=== PATIENT | female | born 1950 | race Caucasian/White ===

== ENCOUNTER 2022-02-03 09:41 | Inpatient (IN) ==
--- NOTE | 2022-01-21 14:33 | PAT Medication Instructions ---
Medication Instructions Date of Service January 21, 2022 Home Medications albuterol sulfate 2.5 mg/3 mL (0.083 %) solution for nebulization 2.5 mg inhalation Q4H PRN Shortness Of Breath Or Wheezing albuterol sulfate 90 mcg/actuation aerosol inhaler (ProAir HFA) 2 puff inhalation 6XD PRN Shortness Of Breath Or Wheezing amlodipine 2.5 mg tablet 2.5 mg PO QAM hydrochlorothiazide 25 mg tablet 25 mg PO QAM trazodone 50 mg tablet 50 mg PO HS acetaminophen 650 mg tablet,extended release 1,300 mg PO DAILY PRN Pain ascorbic acid (vitamin C) 250 mg tablet (Vitamin C) 250 mg PO QAM calcium carbonate 500 mg-vitamin D3 10 mcg (400 unit) tablet (Calcium 500 + D) 1 tab PO QAM ibuprofen 200 mg capsule 200 - 400 mg PO Q6H PRN Pain lactobacillus combination no.4 3 billion cell capsule (Probiotic) 3,000 mmu cells PO QPM vitamin B complex 1 tab PO QAM zinc 50 mg capsule 50 mg PO QAM ASK your surgeon for instructions ibuprofen 200 mg capsule 200 - 400 mg PO Q6H PRN Pain DO NOT take the morning of surgery hydrochlorothiazide 25 mg tablet 25 mg PO QAM ascorbic acid (vitamin C) 250 mg tablet (Vitamin C) 250 mg PO QAM calcium carbonate 500 mg-vitamin D3 10 mcg (400 unit) tablet (Calcium 500 + D) 1 tab PO QAM vitamin B complex 1 tab PO QAM zinc 50 mg capsule 50 mg PO QAM Take morning of surgery With a small sip of water, OTHERWISE NOTHING TO EAT OR DRINK AFTER MIDNIGHT: albuterol sulfate 2.5 mg/3 mL (0.083 %) solution for nebulization 2.5 mg inhalation Q4H PRN Shortness Of Breath Or Wheezing (if needed) albuterol sulfate 90 mcg/actuation aerosol inhaler (ProAir HFA) 2 puff inhalation 6XD PRN Shortness Of Breath Or Wheezing (if needed) amlodipine 2.5 mg tablet 2.5 mg PO QAM acetaminophen 650 mg tablet,extended release 1,300 mg PO DAILY PRN Pain (if needed) Take evening before surgery albuterol sulfate 2.5 mg/3 mL (0.083 %) solution for nebulization 2.5 mg inhalation Q4H PRN Shortness Of Breath Or Wheezing (if needed) albuterol sulfate 90 mcg/actuation aerosol inhaler (ProAir HFA) 2 puff inhalation 6XD PRN Shortness Of Breath Or Wheezing (if needed) trazodone 50 mg tablet 50 mg PO HS acetaminophen 650 mg tablet,extended release 1,300 mg PO DAILY PRN Pain (if needed) lactobacillus combination no.4 3 billion cell capsule (Probiotic) 3,000 mmu cells PO QPM Other Notes If you have any questions please call us at [phone] or [phone] or [phone] or [phone]
--- NOTE | 2022-01-23 11:56 | Anesthesiology Consultation ---
Date of Service January 23, 2022 Assessment & Plan (1) Encounter for pre-operative examination: - Patient acceptable risk for surgery pending surgeon-ordered PCP preop evaluation (scheduled 01/28; [facility]). - COVID screening: Per assessment on 01/23: No known COVID-19 positive contacts or current COVID-19 related symptoms. Travel screen- returned from travel to [place], [place] 01/17 ([facility]). Surgeon arranging preop COVID testing (scheduled 01/30; [facility]). Awaiting results. Chart Review Chart Review: Patient seen in Pre Admission Testing Teaching & Discussion Pre-Anesthesia Teaching/Discussion Notes: Instructed NPO after midnight before surgery,except medications with 15 cc of water. Medication instructions provided according to the PAT guidelines. History Surgery Operation Date: 02/03/22 09:35 Proposed Procedures p L3-L5 Decompression and Fusion, Spinal Cord Monitoring - Basil Zapien DO Height/Weight Height: 5 ft 4 in Weight: 92.4 kg Allergies Allergy/AdvReac Type Severity Reaction Status Date / Time iodine Allergy Intermediate Diffuse Verified 01/21/22 14:43 blistering latex Allergy Intermediate Blistering Verified 01/21/22 14:43 meperidine Allergy Intermediate "Shakes" Verified 01/21/22 14:43 prednisone Allergy Intermediate "Shakes" Verified 01/21/22 14:43 Ewvoxtu-BZB-BpM Reductase Allergy Intermediate "Shakes" Verified 01/21/22 14:43 Inhibitor [Blwyzry-Lzx-Ndr Reductase Inhibitor] Medications Home Medications Medication Instructions Recorded Confirmed Last Taken albuterol sulfate 2.5 mg/3 mL 2.5 mg inhalation Q4H PRN 08/25/21 01/21/22 Unknown (0.083 %) solution for nebulization Shortness Of Breath Or Wheezing albuterol sulfate 90 mcg/actuation 2 puff inhalation 6XD PRN 08/25/21 01/21/22 Unknown aerosol inhaler (ProAir HFA) Shortness Of Breath Or Wheezing amlodipine 2.5 mg tablet 2.5 mg PO QAM 08/25/21 01/21/22 08/25/21 hydrochlorothiazide 25 mg tablet 25 mg PO QAM 08/25/21 01/21/22 08/25/21 trazodone 50 mg tablet 50 mg PO HS 08/25/21 01/21/22 Unknown acetaminophen 650 mg 1,300 mg PO DAILY PRN Pain 01/21/22 01/21/22 Unknown tablet,extended release ascorbic acid (vitamin C) 250 mg 250 mg PO QAM 01/21/22 01/21/22 Unknown tablet (Vitamin C) calcium carbonate 500 mg-vitamin 1 tab PO QAM 01/21/22 01/21/22 Unknown D3 10 mcg (400 unit) tablet (Calcium 500 + D) ibuprofen 200 mg capsule 200 - 400 mg PO Q6H PRN Pain 01/21/22 01/21/22 Unknown lactobacillus combination no.4 3 3,000 mmu cells PO QPM 01/21/22 01/21/22 Unknown billion cell capsule (Probiotic) vitamin B complex 1 tab PO QAM 01/21/22 01/21/22 Unknown zinc 50 mg capsule 50 mg PO QAM 01/21/22 01/21/22 Unknown Past Medical History Medical History Chronic back pain Back to LLE COPD (chronic obstructive pulmonary disease) History of COVID-19 Dx 02/2021 > symptoms at time: loss of taste/smell, resolved Hypertension Lumbosacral radiculopathy at L4 Migraine Hx Tremor Hands, head. No definite diagnosis. Exercise / Class Metabolic Activity III < 4 Walking/Shop/Light housework (one FS (no CP, + SOB)) Past Family History Family History Brother Family history of diabetes mellitus Family hx of colon cancer Brother Family history of diabetes mellitus Brother Family history of diabetes mellitus Daughter Family history of diabetes mellitus Aunt Family history of diabetes mellitus Aunt Family history of diabetes mellitus Aunt Family history of diabetes mellitus Past Surgical History Surgical History Breast cyst Removal Dislocation, hip closed Relocation under anesthesia (07/2021) H/O breast biopsy Benign History of bladder surgery History of cholecystectomy History of colonoscopy History of esophagogastroduodenoscopy (EGD) Nausea and vomiting after administration of anesthetic agent S/P hip replacement Right Past Anesthesia History No Hx of Anesthesia Complications (except single episode PONV) and No Family Hx of Anesthesia Complications History of PONV No Hx of Motion Sickness and History of PONV (Single episode with hip relocation) Social History Smoking Status: Current every day smoker Smoking cigarettes per day: 35 cigs/day Do You Dip or Chew Tobacco: No Hx Alcohol Use: No Hx Substance Use: No substance use type: does not use Review of Systems Patient denies chest pain, shortness of breath, fever, chills, cough, wheezing, palpitations. Physical Exam Vital Signs VITALS BP 126/68 P 89 TEMP 98.1 SP02 95%RA RESP 16 PHYSICAL Full cervical extension range of motion. Full TMJ range of motion. TMD 3 finger breaths Mallampati Score 3 Dentition: upper full denture, several lower missing teeth Lungs: clear throughout to auscultation Cardiac: regular rate and rhythm, no murmurs noted Spine: normal Carotid arteries: negative bruit Extremities: no edema Short neck Lab Results Anesthesia Preop Results Results Anesthesia Widget: PT 10.9 Seconds (9.0-12.0) 01/23/22 PTT 26.5 Seconds (21.0-31.0) 01/23/22 INR 1.0 (0.9-1.1) 01/23/22 Urine Color Yellow 01/23/22 Urine Appearance Clear (Clear) 01/23/22 Urine pH 6.0 (4.5-7.5) 01/23/22 Urine Specific [place] 1.018 (1.000-1.030) 01/23/22 Urine Protein Negative (Negative) 01/23/22 Urine Glucose (UA) Negative (Negative) 01/23/22 Urine Ketones Negative (Negative) 01/23/22 Urine Blood Negative (Negative) 01/23/22 Urine Nitrite Negative (Negative) 01/23/22 Urine Bilirubin Negative (Negative) 01/23/22 Urine Urobilinogen Negative (Negative) 01/23/22 Urine Leukocyte Esterase Trace (Negative) H 01/23/22 Urine WBC (Auto) 1-5 /hpf (0-5) 01/23/22 Urine RBC (Auto) 5-10 /hpf (0-4) H 01/23/22 Urine Hyaline Casts (Auto) 1-5 /lpf (0-5) 01/23/22 Urine Epithelial Cells (Auto) >30 /lpf (0-5) H 01/23/22 Urine Bacteria (Auto) Negative (Negative) 01/23/22 Blood Type B Positive 01/23/22 Antibody Screen NEGATIVE 01/23/22 Testing Laboratory Results 01/10/22 WBC 9.78 H/H 17.8/52.4 PLT 284 SODIUM 139 POTASSIUM 4.2 CHLORIDE 101 CO2 29 BUN 19 CREATININE 0.8 GLUCOSE 88 HGBA1C 6.0% TSH 0.15 FREE T4 1.2 PCP reviewed these labs. PCP response (01/13/22): "Your thyroid test was slightly low. Are you taking any iodine supplements or anything? If not, I'd like to have you repeat this in 6-8 weeks to see if it goes back to normal. Otherwise, your hemoglobin was slightly high, but this is very likely from smoking. No need to change anything based on that." No iodine supplements per PAT visit 01/23/22* Electrocardiogram Date: 01/23/22 Findings: + NSR @ (85) Other Testing Chest CT (11/29/21) Emphysema. Subtle bilateral groundglass opacities likely representing respiratory bronchiolitis. Mild coronary artery calcification. Lipomatous hypertrophy of the intraatrial septum. 0.5 cm solid nodule in the medial left upper lobe. Recommendations per report: Continued routine annual CT lung cancer screening.
[~2022-02-03 09:41] MED LIST: ACETAMINOPHEN 500 MG TAB PO SCH; CeleBREX 200 MG CAP PO SCH; GABAPENTIN 300 MG CAP PO SCH; LR 15ML/HR IV SCH; ceFAZolin 2000MG 2,000 MG/15 ML SYR IV SCH
--- NOTE | 2022-02-03 11:36 | History & Physical Bridge Note ---
Date of Service February 03, 2022 History & Physical Bridge Note I have examined the patient, reviewed the History & Physical and in the interval since the performance of the History & Physical I have noted the following changes of clinical significance: no changes noted
--- NOTE | 2022-02-03 11:37 | History & Physical Report ---
Date of Service February 03, 2022 Assessment & Plan (1) Neurogenic claudication due to lumbar spinal stenosis: Plan: L3-L5 decompression and fusion History of Present Illness Chief Complaint: Back and bilateral leg pain Primary Care Provider: Lv Choi MD This is a 71-year-old female who presents with significant back and bilateral leg pain. Failing course of nonoperative care is here for surgical invention. Allergies Allergy/AdvReac Type Severity Reaction Status Date / Time iodine Allergy Intermediate Diffuse Verified 02/03/22 10:10 blistering latex Allergy Intermediate Blistering Verified 02/03/22 10:10 meperidine Allergy Intermediate "Shakes" Verified 02/03/22 10:10 prednisone Allergy Intermediate "Shakes" Verified 02/03/22 10:10 Vrgbtit-FKK-FgE Reductase Allergy Intermediate "Shakes" Verified 02/03/22 10:10 Inhibitor [Ujbkgva-Ibb-Ueb Reductase Inhibitor] Home Medications Medication Instructions Recorded Confirmed Type albuterol sulfate 2.5 mg/3 mL 2.5 mg inhalation Q4H PRN 08/25/21 02/03/22 History (0.083 %) solution for nebulization Shortness Of Breath Or Wheezing albuterol sulfate 90 mcg/actuation 2 puff inhalation 6XD PRN 08/25/21 02/03/22 History aerosol inhaler (ProAir HFA) Shortness Of Breath Or Wheezing amlodipine 2.5 mg tablet 2.5 mg PO QAM 08/25/21 02/03/22 History hydrochlorothiazide 25 mg tablet 25 mg PO QAM 08/25/21 02/03/22 History trazodone 50 mg tablet 50 mg PO HS 08/25/21 02/03/22 History acetaminophen 650 mg 1,300 mg PO DAILY PRN Pain 01/21/22 02/03/22 History tablet,extended release ascorbic acid (vitamin C) 250 mg 250 mg PO QAM 01/21/22 02/03/22 History tablet (Vitamin C) calcium carbonate 500 mg-vitamin 1 tab PO QAM 01/21/22 02/03/22 History D3 10 mcg (400 unit) tablet (Calcium 500 + D) ibuprofen 200 mg capsule 200 - 400 mg PO Q6H PRN Pain 01/21/22 02/03/22 History lactobacillus combination no.4 3 3,000 mmu cells PO QPM 01/21/22 02/03/22 H istory billion cell capsule (Probiotic) vitamin B complex 1 tab PO QAM 01/21/22 02/03/22 History zinc 50 mg capsule 50 mg PO QAM 01/21/22 02/03/22 History Past Med/Surg History Medical History Chronic back pain Back to LLE COPD (chronic obstructive pulmonary disease) History of COVID-19 Dx 02/2021 > symptoms at time: loss of taste/smell, resolved Hypertension Lumbosacral radiculopathy at L4 Migraine Hx Tremor Hands, head. No definite diagnosis. Surgical History Breast cyst Removal Dislocation, hip closed Relocation under anesthesia (07/2021) H/O breast biopsy Benign History of bladder surgery History of cholecystectomy History of colonoscopy History of esophagogastroduodenoscopy (EGD) Nausea and vomiting after administration of anesthetic agent S/P hip replacement Right Family History Brother Family history of diabetes mellitus Family hx of colon cancer Brother Family history of diabetes mellitus Brother Family history of diabetes mellitus Daughter Family history of diabetes mellitus Aunt Family history of diabetes mellitus Aunt Family history of diabetes mellitus Aunt Family history of diabetes mellitus Social History Smoking Status: Current every day smoker Cigarettes Per Day: 35 cigs/day; Second Hand Exposure: No; Do You Dip or Chew Tobacco: No; Hx Alcohol Use: No Hx Substance Use: No Preferred Language: Niuean Communication Ability: Effective Senior Application Programmer Required: No Beliefs That Will Affect Care: None Current Living Situation: Alone current occupational status: retired Other Information That Helps Us Care for You: No Feels Safe at Home: Yes Safety Concerns: Feels Safe At This Time Assistive Devices: Cane, Denture - Upper, Glasses and Walker Physical Exam Physical Exam: Patient is alert and oriented Heart regular rhythm Lungs clear Results & Data Results & Data ([facility]) Vital Signs (Past 12 Hours) Vital Signs Temp Pulse Resp BP Pulse Ox O2 Del Method 02/03/22 10:17 Room Air 02/03/22 10:07 36.7 C 94 H 22 118/102 H 94 Room Air
[2022-02-03] MEDS ORDERED: fentaNYL citrate 100 MCG/2 ML VIAL ONE (11:53)
[2022-02-03] MEDS ORDERED: LIDOCAINE 2% MPF LOCAL 5 ML VIAL INFIL ONE ×2 (11:53→14:01)
[2022-02-03] MEDS ORDERED: PROPOFOL IV EMULSION 10 MG/ML 20 ML VIAL IV ONE (11:53)
[2022-02-03] MEDS ORDERED: ROCURONIUM BROMIDE 10 MG/ML 5 ML VIAL IV ONE (11:53)
[2022-02-03] MEDS ORDERED: ONDANSETRON INJ 2 MG/ML 2 ML VIAL IV PRN (12:05)
[2022-02-03] MEDS ORDERED: ATROPINE SULFATE 0.1 MG/ML 10ML SYR IV PRN (12:05)
[2022-02-03] MEDS ORDERED: HYDROmorphone INJ 1 MG/ML SYRINGE IV PRN ×2 (12:05→15:56)
[2022-02-03] MEDS ORDERED: PROMETHAZINE HCL 6.25 MG in SODIUM CHLORIDE 0.9% 50 ML IV PRN (12:05)
[2022-02-03] MEDS ORDERED: ePHEDrine sulfate 50 MG/ML AMP IV PRN (12:05)
[2022-02-03] MEDS ORDERED: BUPIVACAINE/EPINEPHRINE 0.25% 1:200,000 30 ML VIAL ONE (12:15)
[2022-02-03] MEDS ORDERED: ceFAZolin 330 MG/ML 1 GM VIAL ONE (12:15)
[2022-02-03] MEDS ORDERED: HYDROmorphone INJ 2 MG/ML SYR/VIAL ONE (12:44)
[2022-02-03] MEDS ORDERED: ONDANSETRON INJ 2 MG/ML 2 ML VIAL ONE (14:01)
--- NOTE | 2022-02-03 14:23 | Operative Report ---
Post Operative Report Pre & Post Diagnosis Operation Date: 02/03/22 11:25 Pre-Op Diagnosis: Spinal Stenosis, Lumbar Region with Neurogenic Claudication Post-Op Diagnosis: Spinal Stenosis, Lumbar Region with Neurogenic Claudication I identified the patient and participated in the time-out.: Yes Procedure Operation Date: 02/03/22 11:25 Actual Procedures #1 lumbar decompression with bilateral medial facetectomies and foraminotomies L2-L3, L3-L4 L4-5. #2 posterior spinal fusion L3-L4 L4-5. #3 placement posterior instrumentation L3-L4 L4-L5. #4 interbody fusion L3-L4 L4-L5. #5 placement of Spira 13 x 26 mm at L3-L4 and 14 x 26 mm and L 4 L5. #6 placement locally harvested morselized autograft in the posterior gutters. #7 placement of I factor combined with V toss in the posterior lateral gutters interbody space. Surgeon Basil Zapien, DO Contract Processor Preethi Conde Estimated Blood Loss 100 Findings See Below The patient is 5 foot 4 inches tall weighing over 90 kg with a BMI in excess of 34. The patient's body habitus did contribute to significant technical difficulty required deeper retractors longer instruments in order to perform her procedure. This added at least 50% increased operative time. Specimens none Indications This is a 71-year-old female who presents above-mentioned diagnosis after failed course of nonoperative care is here for surgical invention. Description of Procedure Patient was met with identified informed consent obtained. Patient was then taken to the operative suite underwent a patient placed in a prone position the [place] table top Chin frame. All bony prominences well-padded eyes inspected to ensure no external pressure placed upon them. This point the lumbar spine was prepped and draped in the normal sterile fashion. Sharp dissection with the assistance of Bovie cautery was performed down to and exposing the lamina and transverse processes of L3-L4-L5 bilaterally. From caudal to cephalad fashion complete laminectomy of L4 L3 and partial laminectomy of L2 was performed including bilateral medial facetectomies and foraminotomies addressing severe spinal stenosis. Pedicle screws then placed in L3-L4-L5 bilaterally with assistance of fluoroscopy and appropriate sized chris placed. By way of a transforaminal approach on the left complete discectomy of L for L5 was performed endplates curetted to subcortical any bone and a 14 x 26 mm spiral cage filled with I factor tapped in position. Then proceeded to L3-L4 and again by way of a transfemoral approach and left complete discectomy performed endplates curetted to subcortically bone and a 13 x 26 mm spiral cage filled I factor tapped in position. The rods were then compressed and locked in final position bilaterally. The transverse processes of L3 L4-5 burred to subcortically bone. I factor combined with V toss and locally harvested morselized autograft was placed in the posterior gutters. 15 round BRAXTON drain inserted. The incision was then closed with 1 Vicryl in the fascia 2-0 Vicryl subcutaneously and 4 Monocryl for final skin closure. Steri-Strip sterile dressings placed. Patient waken taken to PACU stable condition. Please note spinal cord monitoring was utilized at the procedure no changes noted. Lastly Preethi Conde was present out the entire procedure involved the patient positioning complex portions of the surgery and fascial closure. I attest to the content of the Intraoperative Record and any orders documented therein. Any exceptions are noted below.
--- NOTE | 2022-02-03 14:32 | Fluoroscopy Report ---
FL lumbar spine 2-3V CLINICAL HISTORY: L3-L5 DECOMPRESSION AND FUSION TECHNIQUE: 2 views were obtained with the C-arm in the OR with the above procedure. Total fluoroscopy time was 21.6 seconds. Total skin dose was 26.97 mGy. Comparison: Comparison is made to lumbar spine MRI 06/01/2015 FINDINGS/IMPRESSION: Intraoperative images were obtained of L3-L5 discectomy and fusion. Please correlate with intraoperative fluoroscopy and operative report. ACT 112: Negative or not required by law. Electronically signed by: Blake Morris M.D. 02/03/2022 2:31 PM
[2022-02-03] MEDS ORDERED: NEOSTIGMINE METHYLSULFATE 1 MG/ML 10ML VIAL ONE (14:40)
[2022-02-03] MEDS ORDERED: GLYCOPYRROLATE 0.2 MG/ML VIAL ONE (14:40)
[2022-02-03] MEDS: fentaNYL citrate 100 MCG/2 ML VIAL IV PRN ×3 (14:48→14:59)
--- NOTE | 2022-02-03 15:16 | Anesthesiology Progress Note ---
Date of Service February 03, 2022 Anesthesia Post Procedure Vital Signs Vital Signs: Temp Pulse Pulse Resp BP Pulse Ox O2 Del Method 02/03/22 15:00 67 18 136/68 97 Oxymask 02/03/22 14:50 66 14 146/82 H 98 Oxymask 02/03/22 14:40 72 12 124/94 98 Oxymask 02/03/22 14:32 97.5 F L 75 16 136/78 99 Oxymask 02/03/22 10:17 Room Air 02/03/22 10:07 98.1 F 94 H 22 118/102 H 94 Room Air O2 Flow Rate 02/03/22 15:00 5 02/03/22 14:50 9 02/03/22 14:40 9 02/03/22 14:32 9 02/03/22 10:17 02/03/22 10:07 Pain Intensity Back: Pain Intensity: 4 Transfer of Care Handoff Completed per policy Notes Mental Status: alert / awake / arousable and participated in evaluation Patient Amnestic to Procedure: Yes Nausea / Vomiting: adequately controlled Pain: adequately controlled Airway Patency, RR, SpO2: stable & adequate BP & HR: stable & adequate Hydration State: stable & adequate Anesthetic Complications: no major complications apparent and Pt Satisfied with anesthetic care
[2022-02-03] MEDS ORDERED: ALBUT/IPRATROP 3MG/0.5MG NEB 3 ML VIAL ONE (15:22)
[2022-02-03] MEDS ORDERED: hydrOXYzine HCl 25 MG TAB PO PRN (15:56)
[2022-02-03] MEDS ORDERED: PROMETHAZINE HCL 12.5 MG in SODIUM CHLORIDE 0.9% 50 ML IV PRN (15:56)
[2022-02-03] MEDS ORDERED: NALOXONE HCL 0.4 MG/1 ML VIAL/CARP IV PRN (15:56)
[2022-02-03] MEDS ORDERED: METOCLOPRAMIDE HCL INJ 5 MG/ML 2 ML VIAL IV PRN (15:56)
[2022-02-03] MEDS ORDERED: bisacodyL 10 MG SUPP PR PRN (15:56)
[2022-02-03] MEDS ORDERED: ALBUTEROL 0.083% NEBU SOLN 3 ML VIAL INH PRN (15:56)
[2022-02-03] MEDS ORDERED: traMADol HCL 50 MG TABLET PO PRN (15:56)
[2022-02-03] MEDS ORDERED: diphenhydrAMINE Capsule 25 MG CAP PO PRN (15:56)
[2022-02-03] MEDS ORDERED: ONDANSETRON 4 MG OD TAB PO PRN (15:56)
[2022-02-03] MEDS ORDERED: ALUMINUM/MAGNESIUM SUSP 30 ML UDC PO PRN (15:56)
[2022-02-03] MEDS ORDERED: SOD PHOSPHATE/SOD BIPHOSPHATE ENEMA 132 ML BTL PR PRN (15:56)
[2022-02-03] MEDS ORDERED: FAMOTIDINE 20 MG TAB PO PRN (15:56)
[2022-02-03] MEDS ORDERED: MAGNESIUM HYDROXIDE SUSP 30 ML UDC PO PRN (15:56)
[2022-02-03] MEDS ORDERED: LORazepam 0.5 MG TAB PO PRN (15:56)
[2022-02-03] MEDS ORDERED: LORazepam 0.5 MG in SYRINGE 0.25 ML IV PRN (15:56)
[2022-02-03] MEDS ORDERED: ACETAMINOPHEN 1,000 MG/100 ML VIAL IV PRN (15:56)
[2022-02-03] MEDS: ONDANSETRON INJ 2 MG/ML 2 ML VIAL IV PRN ×2 (16:49→23:00)
[2022-02-03] MEDS: LACTATED RINGER'S 1,000 ML IV SCH ×2 (16:57→22:57)
[2022-02-03] MEDS ORDERED: ACETAMINOPHEN 500 MG TAB PO PRN (17:00)
--- NOTE | 2022-02-03 17:04 | Consultation ---
Date of Consultation February 03, 2022 Assessment & Plan (1) Neurogenic claudication due to lumbar spinal stenosis: (2) Lumbosacral radiculopathy at L4: (3) Hypertension: (4) COPD (chronic obstructive pulmonary disease): Plan Pt is a 71 y/o female who presents to the [facility] for a scheduled lumbar decompression with Dr. Zapien after failed outpatient conservative measures were taken. Medicine service has been consulted for medical management. Neurognic Claudication d/t lumbar spinal stenosis Lumbarsacral Radiculopathy at L4 POD #0. #1 lumbar decompression with bilateral medial facetectomies and foraminotomies L2-L3, L3-L4 L4-5. #2 posterior spinal fusion L3-L4 L4-5. #3 placement posterior instrumentation L3-L4 L4-L5. EBL 100mL BRAXTON drain present Hgb on 01/10/22 17.8. Recheck labs in AM PT/OT to start 02/04 Dr. Zapien to manage wound, pain and bowel regimens. HTN: Stable: Continue Amlodipine and HCTZ COPD: Uses rescue inhaler at home ISB ordered SpO2 93% 2LNC. Disposition: Code Status: Full Code PCP: Dr. Yady Choi VTE Prophylaxis: TEDS and SCDs; otherwise defer to Ortho Plan to return home after DC Please contact [facility] Hospitalist via [place] Text 05/01 for any additional needs or if we can be of assistance. Supervising Physician Co-Signing Physician Notes I have seen and examined the patient and have discussed the case with the provider above. I agree with the assessment and plan as stated. She is acutely ill likely from the anesthesia as this has occurred before. She is also asking for coffee as she reports vomiting. Given Zofran, will try Phenergan now. Otherwise she denies any pain in her back and no numbness in her feet. Daughter is at bedside. Med list reviewed and approved. Cont all meds currently ordered. DO Anderson History of Present Illness Requesting Physician: Dr. Zapien Reason for Consultation: Medical Management Attending Physician: Basil Zapien DO History of Present Illness Pt is a 71 y/o female who presents to the [facility] for a scheduled lumbar decompression with Dr. Zapien after failed outpatient conservative measures were taken. Pt has an additional PMH that includes: COPD, HTN, Migraines, and tremors. Medicine service has been consulted for medical management. Allergies Allergy/AdvReac Type Severity Reaction Status Date / Time iodine Allergy Intermediate Diffuse Verified 02/03/22 10:10 blistering latex Allergy Intermediate Blistering Verified 02/03/22 10:10 meperidine Allergy Intermediate "Shakes" Verified 02/03/22 10:10 prednisone Allergy Intermediate "Shakes" Verified 02/03/22 10:10 [id number]-TRX-LiK Reductase Allergy Intermediate "Shakes" Verified 02/03/22 10:10 Inhibitor [Vwohcfd-Zbg-Fdu Reductase Inhibitor] Home Medications Medication Instructions Recorded Confirmed Type albuterol sulfate 2.5 mg/3 mL 2.5 mg inhalation Q4H PRN 08/25/21 02/03/22 History (0.083 %) solution for nebulization Shortness Of Breath Or Wheezing albuterol sulfate 90 mcg/actuation 2 puff inhalation 6XD PRN 08/25/21 02/03/22 History aerosol inhaler (ProAir HFA) Shortness Of Breath Or Wheezing amlodipine 2.5 mg tablet 2.5 mg PO QAM 08/25/21 02/03/22 History hydrochlorothiazide 25 mg tablet 25 mg PO QAM 08/25/21 02/03/22 History trazodone 50 mg tablet 50 mg PO HS 08/25/21 02/03/22 History acetaminophen 650 mg 1,300 mg PO DAILY PRN Pain 01/21/22 02/03/22 History tablet,extended release ascorbic acid (vitamin C) 250 mg 250 mg PO QAM 01/21/22 02/03/22 History tablet (Vitamin C) calcium carbonate 500 mg-vitamin 1 tab PO QAM 01/21/22 02/03/22 History D3 10 mcg (400 unit) tablet (Calcium 500 + D) ibuprofen 200 mg capsule 200 - 400 mg PO Q6H PRN Pain 01/21/22 02/03/22 History lactobacillus combination no.4 3 3,000 mmu cells PO QPM 01/21/22 02/03/22 History billion cell capsule (Probiotic) vitamin B complex 1 tab PO QAM 01/21/22 02/03/22 History zinc 50 mg capsule 50 mg PO QAM 01/21/22 02/03/22 History Patient History Medical History Chronic back pain Back to LLE COPD (chronic obstructive pulmonary disease) History of COVID-19 Dx 02/2021 > symptoms at time: loss of taste/smell, resolved Hypertension Lumbosacral radiculopathy at L4 Migraine Hx Tremor Hands, head. No definite diagnosis. Surgical History Breast cyst Removal Dislocation, hip closed Relocation under anesthesia (07/2021) H/O breast biopsy Benign History of bladder surgery History of cholecystectomy History of colonoscopy History of esophagogastroduodenoscopy (EGD) Nausea and vomiting after administration of anesthetic agent S/P hip replacement Right Family History Brother Family history of diabetes mellitus Family hx of colon cancer Brother Family history of diabetes mellitus Brother Family history of diabetes mellitus Daughter Family history of diabetes mellitus Aunt Family history of diabetes mellitus Aunt Family history of diabetes mellitus Aunt Family history of diabetes mellitus Social History Smoking Status: Current every day smoker Cigarettes Per Day: 35 cigs/day; Second Hand Exposure: No; Do You Dip or Chew Tobacco: No; Hx Alcohol Use: No Hx Substance Use: No Preferred Language: Amharic Communication Ability: Effective Building Admin Required: No Beliefs That Will Affect Care: None Current Living Situation: Alone current occupational status: retired Other Information That Helps Us Care for You: No Feels Safe at Home: Yes Safety Concerns: Feels Safe At This Time Assistive Devices: Cane, Denture - Upper, Glasses and Walker Review of Systems Review of Systems: Neuro: (-) Falls, trauma, slurred speech HEENT: (-) ACUNA, dizziness, dysphagia, visual or auditory changes CV: (-) CP, palpitations, swelling Resp: (-) SOB GI: (-) appetite changes, N/V/D, bowel changes : (-) urinary changes Skin: (-) rashes Psych: (-) anxiety, depression Physical Exam Physical Exam: Neuro: AAOx4, PERRLA, no aphagia, memory changes, CNII-XII grossly intact HEENT: head normocephalic, moist mucus membranes CV: S1/S2, (-) M/G/R, (-) edema, cap refill < 3 seconds. BRAXTON drain lower back draining bright red blood. Resp: Lungs CTA in all valenzuela. On RA GI: Abdomen S/NT/ND, Ax4 bowel sounds, (-) CVA tenderness Musculoskeletal: 5/5 B/L UE strength, 4/5 B/L LE strength. Skin: (-) rashes , (-) erythema. lower back midline incision. Dressing C/D/I. Psych:drowsy Results & Data ([facility]) Vital Signs (Past 12 Hours) Vital Signs Temp Pulse Pulse Resp BP Pulse Ox O2 Del Method 02/03/22 16:50 64 16 132/69 92 02/03/22 15:50 36.5 C 62 16 115/78 92 Nasal Cannula 02/03/22 15:40 67 14 128/76 93 Nasal Cannula 02/03/22 15:30 36.4 C L 63 15 106/83 95 Nasal Cannula 02/03/22 15:20 64 13 127/79 98 Nasal Cannula 02/03/22 15:10 36.2 C L 79 18 119/72 97 Nasal Cannula 02/03/22 15:00 67 18 136/68 97 Oxymask 02/03/22 14:50 66 14 146/82 H 98 Oxymask 02/03/22 14:40 72 12 124/94 98 Oxymask 02/03/22 14:32 36.4 C L 75 16 136/78 99 Oxymask 02/03/22 10:17 Room Air 02/03/22 10:07 36.7 C 94 H 22 118/102 H 94 Room Air O2 Flow Rate 02/03/22 16:50 2 02/03/22 15:50 2 02/03/22 15:40 2 02/03/22 15:30 2 02/03/22 15:20 2 02/03/22 15:10 2 02/03/22 15:00 5 02/03/22 14:50 9 02/03/22 14:40 9 02/03/22 14:32 9 02/03/22 10:17 02/03/22 10:07 Diagnostic Findings Lumbar Spine X-Ray 02/03/22 11:25 FL lumbar spine 2-3V CLINICAL HISTORY: L3-L5 DECOMPRESSION AND FUSION TECHNIQUE: 2 views were obtained with the C-arm in the OR with the above procedure. Total fluoroscopy time was 21.6 seconds. Total skin dose was 26.97 mGy. Comparison: Comparison is made to lumbar spine MRI 06/01/2015 FINDINGS/IMPRESSION: Intraoperative images were obtained of L3-L5 discectomy and fusion. Please correlate with intraoperative fluoroscopy and operative report. ACT 112: Negative or not required by law. Electronically signed by: Blake Morris M.D. 02/03/2022 2:31 PM
[2022-02-03] MEDS: HYDROmorphone INJ 0.5 MG/0.5 ML SYR IV PRN ×2 (17:33→21:25)
[2022-02-03] MEDS ORDERED: PROMETHAZINE HCL 25 MG TAB PO ONE (18:12)
[2022-02-03] MEDS: ceFAZolin 2000MG 2,000 MG/15 ML SYR IV SCH (21:09)
[2022-02-03] MEDS: DOCUSATE SODIUM/SENNA 50/8.6MG TAB PO SCH (21:10)
[2022-02-03] MEDS: traZODone HCL 50 MG TAB PO SCH (21:11)
[2022-02-03] MEDS: SACCHAROMYCES BOULARDII 250 MG CAP PO SCH (21:11)
[2022-02-04] MEDS: oxyCODONE HCL IR 5 MG TAB (IMMEDIATE RELEASE) PO PRN ×4 (03:38→20:25)
[2022-02-04] MEDS: ceFAZolin 2000MG 2,000 MG/15 ML SYR IV SCH (03:50)
[2022-02-04] MEDS: POLYETHYLENE (MIRALAX) 17 GM PACK PO SCH ×3 (05:45→18:17)
[2022-02-04] MEDS: LACTATED RINGER'S 1,000 ML IV SCH (05:45)
[2022-02-04 08:26] LABS: Basophils # (auto) 0.05 K/uL (0-0.2); Basophils % (auto) 0.5 %; Eosinophils # (auto) 0.08 K/uL (0-0.50); Eosinophils % (auto) 0.7 %; Hemoglobin 13.9 g/dl (12.0-16.0); Immature Granulocytes # (auto) 0.05 K/uL (0.00-0.02); Immature Granulocytes % (auto) 0.5 %; Lymphocytes # (auto) 1.67 K/uL (1.2-3.4); Lymphocytes % (auto) 15.3 %; Mean Corpuscular Hemoglobin 31.5 pg (25.0-34.0); Mean Corpuscular Hgb Conc 33.9 g/dL (32.0-36.0); Mean Platelet Volume 9.9 fL (9.4-12.3); Monocytes # (auto) 0.92 K/uL (0.24-0.82); Monocytes % (auto) 8.4 %; Neutrophils # (auto) 8.15 K/uL (1.4-6.5); Neutrophils % (auto) 74.6 %; Platelet Count 218 K/uL (130-400); RDW Coefficient of Variation 13.8 % (11.5-14.5); RDW Standard Deviation 47.6 fL (36.4-46.3); Red Blood Count 4.41 M/uL (3.93-5.22); White Blood Count 10.92 K/ul (4.8-10.8)
[2022-02-04 08:52] LABS: BUN Creatinine Ratio 18.4 (10-20); Calcium 8.2 mg/dl (8.5-10.1); Creatinine Clr Calc Pharmacy 64.8 ml/min; Est GFR (African American) 77.7 ml/min; Potassium 3.4 mmol/L (3.5-5.1)
[2022-02-04] MEDS ORDERED: POTASSIUM CHLORIDE CRTAB 20 MEQ TABCR PO STA (08:56)
[2022-02-04] MEDS ORDERED: amLODIPine BESYLATE 5 MG TAB PO SCH (09:00)
[2022-02-04] MEDS ORDERED: hydroCHLOROthiazide 25 MG TAB PO SCH (09:00)
--- NOTE | 2022-02-04 09:14 | Orthopedic Progress Note ---
Date of Service February 04, 2022 Assessment & Plan (1) Neurogenic claudication due to lumbar spinal stenosis: Plan: At this time initiate physical therapy monitor BRAXTON output hopefully discharge home in next day or so. Admission and Anticipated Discharge Date Admission Date: February 03, 2022 Subjective Patient complaining of back pain but leg pain improved. Physical Exam Physical Exam: Patient is comfortable in bed. Is good strength testing. Results & Data ([facility]) Vital Signs (Past 12 Hours) Vital Signs Temp Pulse Resp BP Pulse Ox O2 Del Method O2 Flow Rate 02/04/22 07:55 37.1 C 85 16 103/62 94 Room Air 02/04/22 03:41 36.5 C 110 H 16 105/72 94 Nasal Cannula 2 02/03/22 22:19 36.6 C 113 H 22 96/67 L 96 Nasal Cannula 2
[2022-02-04] MEDS: ASCORBIC ACID 500 MG TAB PO SCH (09:28)
[2022-02-04] MEDS: VITAMIN B COMPLEX TAB PO SCH (09:28)
[2022-02-04] MEDS: CALCIUM 600MG + VIT D 400 IU TAB PO SCH (09:28)
[2022-02-04] MEDS: dexAMETHasone 6 MG in SYRINGE 0 ML IV SCH (09:29)
[2022-02-04] MEDS: ONDANSETRON INJ 2 MG/ML 2 ML VIAL IV PRN (09:30)
[2022-02-04] MEDS: NICOTINE 21 MG/24 HR TDSY TD SCH (10:38)
--- NOTE | 2022-02-04 11:19 | Hospitalist Progress Note ---
Date of Service February 04, 2022 Assessment & Plan (1) Neurogenic claudication due to lumbar spinal stenosis: (2) Lumbosacral radiculopathy at L4: (3) Hypertension: (4) COPD (chronic obstructive pulmonary disease): Plan Pt is a 71 y/o female who presents to the [facility] for a scheduled lumbar decompression with Dr. Zapien after failed outpatient conservative measures were taken. Medicine service has been consulted for medical management. Neurogenic Claudication d/t lumbar spinal stenosis Lumbar sacral Radiculopathy at L4 POD #1. #1 lumbar decompression with bilateral medial facetectomies and foraminotomies L2-L3, L3-L4 L4-5. #2 posterior spinal fusion L3-L4 L4-5. #3 placement posterior instrumentation L3-L4 L4-L5. EBL 100mL BRAXTON drain present with 430ml OP thus far Hgb on 01/10/22 17.8, hgb 13.9 today PT/OT to start 02/04 Dr. Zapien to manage wound, pain and bowel regimens. HTN: BP on lower side will hold HCTZ and amlodipine today resume when bp normalizes COPD: Uses rescue inhaler at home ISB ordered Off O2, continue to encourage incentive spirometry, discussed at bedside Hypokalemia replace with 40meq kcl x 1 today repeat bmp in a.m. Tobacco abuse nicotine patch ordered encourage cessation Code Status: Full Code PCP: Dr. Choi VTE Prophylaxis: TEDS and SCDs; otherwise defer to Ortho Dispo: Plan to return home after DC PT was seen and examined in collaboration with Dr. Garcia, please see addendum Thank you for this consultation. We will follow the patient with you during their hospital stay. You can reach a member of the [facility] Hospitalist Team 05/01 via hospitalist role on tiger text. Admission and Anticipated Discharge Date Admission Date: February 03, 2022 Supervising Physician Co-Signing Physician Notes Pt seen and examined by me, care coordinated w/ Jarad Flowers PA-C, pls refer to her note above for further detail. Pt s/p lumbar surgery yesterday. Currently reports some post-op back pain. No fever, chills, chest pain, shortness of breath, abd. pain, nausea or vomiting. Still has moore catheter placed on my exam. Has not been out of bed yet at time of my exam. has some wheezing on lung exam, not sure about her baseline, will have her cont. her home inhaler prn. BP on lower side, hold BP meds. Cont. to closely monitor hemodynamic status. MD Radha Subjective Patient was seen and examined in room 323. Follow-up lumbar surgery by Dr. Zapien. She complains of incisional low back pain along with pain in her bilateral calfs. Pain is currently a 7 out of 10. She states her last pain medication was around 3 or 4 this morning. Prior to surgery she also had pain in her bilateral calfs. She denies any numbness or tingling. She continues to have Moore cath in place. She is a 1 pack/day smoker. She is requesting a nicotine patch. She denies any chest pain or shortness of breath, fever, chills, sweats, lightheadedness, dizziness, nausea or vomiting. She did have nausea and vomiting postoperatively yesterday but this is since resolved. Review of Systems Review of Systems: All systems reviewed & are unremarkable except as noted in HPI & below Physical Exam Physical Exam: Gen: WD/WN, female, NAD, A&O x3 HEENT: Normocephalic, atraumatic, conjunctivae moist, sclerae anicteric, mucous membranes moist. Lung: Clear to Auscultation bilaterally, scant expiratory wheeze bilaterally, no rales or rhonchi Heart: Regular rate, regular rhythm, no murmurs, rubs, or gallops Abdomen: Soft, NT, ND +BS x 4 Extremities: No edema, lumbar dressing CDI, BRAXTON drain with serosanguineous drainage Skin: Warm, no rash, negative turgor. : Moore catheter draining yellow urine Results & Data Results & Data ([facility]) Vital Signs (Past 12 Hours) Vital Signs Temp Pulse Resp BP Pulse Ox O2 Del Method O2 Flow Rate 02/04/22 07:55 37.1 C 85 16 103/62 94 Room Air 02/04/22 03:41 36.5 C 110 H 16 105/72 94 Nasal Cannula 2 Laboratory Results Short CBC 02/04/22 Range/Units 07:21 WBC 10.92 H (4.8-10.8) K/ul Hgb 13.9 (12.0-16.0) g/dl Hct 41.0 (34.1-44.9) % Plt Count 218 (130-400) K/uL BMP 02/04/22 07:21 Sodium 133 L Potassium 3.4 L Chloride 102 Carbon Dioxide 28 BUN 16 Creatinine 0.87 Glucose 112 H Calcium 8.2 L Medications Administered Current Inpatient Medications Acetaminophen (Acetaminophen 500 Mg Tab) 1,000 mg PO Q8H PRN PRN Reason: MILD Pain Scale 1,2,3 & Pre PT Stop: 03/05/22 16:59 Al Hydrox/Mg Hydrox/Simethicone (Aluminum/Magnesium Susp 30 Ml Udc) 30 ml PO Q6H PRN PRN Reason: Dyspepsia Stop: 03/05/22 15:55 Albuterol (Albuterol 0.083% Nebu Soln 3 Ml Vial) 2.5 mg INH Q4R PRN; Protocol PRN Reason: Shortness Of Breath Or Wheezing Stop: 03/05/22 15:55 Albuterol (Albuterol Hfa 8 Gm Inhaler) 2 puffs INH Q4R PRN PRN Reason: Shortness Of Breath Or Wheezing Stop: 03/05/22 15:55 Amlodipine Besylate (Amlodipine Besylate 5 Mg Tab) 2.5 mg PO QAM DEAN Stop: 03/06/22 08:59 Ascorbic Acid (Ascorbic Acid 500 Mg Tab) 250 mg PO QAM DEAN Stop: 03/06/22 08:59 Last Admin: 02/04/22 09:28 Dose: 250 mg Bisacodyl (Bisacodyl 10 Mg Supp) 10 mg NH DAILY PRN PRN Reason: Constipation Stop: 03/05/22 15:55 Diphenhydramine HCl (Diphenhydramine Capsule 25 Mg Cap) 25 mg PO Q6H PRN PRN Reason: Allergic Rhinitis/Insomnia Stop: 03/05/22 15:55 Famotidine (Famotidine 20 Mg Tab) 20 mg PO Q12H PRN PRN Reason: Dyspepsia Stop: 03/05/22 15:55 Hydrochlorothiazide (Hydrochlorothiazide 25 Mg Tab) 25 mg PO QAM DEAN Stop: 03/06/22 08:59 Hydromorphone HCl (Hydromorphone Inj 0.5 Mg/0.5 Ml Syr) 0.5 mg IV Q3H PRN PRN Reason: MODERATE Pain (Scale 4,5,6) & Pre PT Stop: 02/17/22 15:55 Last Admin: 02/03/22 21:25 Dose: 0.5 mg Hydromorphone HCl (Hydromorphone Inj 1 Mg/Ml Syringe) 1 mg IV Q3H PRN PRN Reason: SEVERE Pain (Scale 7,8,9,10) Stop: 02/17/22 15:55 Hydroxyzine HCl (Hydroxyzine Hcl 25 Mg Tab) 25 mg PO Q8H PRN PRN Reason: Anxiety Stop: 03/05/22 15:55 Acetaminophen (Ofirmev) 1,000 mg in 100 mls @ 400 mls/hr IV Q8H PRN PRN Reason: Pain Rating 1-3 & Pre PT Stop: 02/04/22 15:56 Promethazine HCl 12.5 mg/ (Sodium Chloride) 50.5 mls @ 202 mls/hr IV Q6H PRN PRN Reason: Nausea &/or Vomiting Stop: 03/05/22 15:55 Lorazepam 0.5 mg/ Syringe 0.5 mls @ 2 mls/min IV Q8H PRN PRN Reason: Sedation/Anxiety Stop: 03/05/22 15:55 Dexamethasone 6 mg/ Syringe 1.5 mls @ 1 mls/min IV DAILY [facility] Stop: 02/06/22 09:02 Last Admin: 02/04/22 09:29 Dose: 1 mls/min Lorazepam (Lorazepam 0.5 Mg Tab) 0.5 mg PO Q8H PRN PRN Reason: Sedation/Anxiety Stop: 03/05/22 15:55 Magnesium Hydroxide (Magnesium Hydroxide Susp 30 Ml Udc) 30 ml PO Q24H PRN PRN Reason: Constipation Stop: 03/05/22 15:55 Metoclopramide HCl (Metoclopramide Hcl Inj 5 Mg/Ml 2 Ml Vial) 10 mg IV Q6H PRN PRN Reason: Nausea &/or Vomiting Stop: 03/05/22 15:55 Last Admin: 02/04/22 03:38 Dose: 10 mg Miscellaneous (Remove Nicoderm Patch) 1 each N/A DAILY@0859 [facility] Stop: 03/06/22 08:58 Last Admin: 02/04/22 10:39 Dose: Not Given Multivitamins/Minerals (Calcium 600mg + Vit D 400 Iu Tab) 1 tab PO QAM DEAN Stop: 03/06/22 08:59 Last Admin: 02/04/22 09:28 Dose: 1 tab Naloxone HCl (Naloxone Hcl 0.4 Mg/1 Ml Vial/Carp) 0.1 mg IV Q5M PRN PRN Reason: Oversedation/Resp depression Stop: 03/05/22 15:55 Nicotine (Nicotine 21 Mg/24 Hr Tdsy) 21 mg TD QAM DEAN Stop: 03/06/22 08:59 Last Admin: 02/04/22 10:38 Dose: 21 mg Ondansetron HCl (Ondansetron Inj 2 Mg/Ml 2 Ml Vial) 4 mg IV Q6H PRN PRN Reason: Nausea &/or Vomiting Stop: 03/05/22 15:55 Last Admin: 02/04/22 09:30 Dose: 4 mg Ondansetron HCl (Ondansetron 4 Mg Od Tab) 4 mg PO Q6H PRN PRN Reason: Nausea Stop: 03/05/22 15:55 Oxycodone HCl (Oxycodone Hcl Ir 5 Mg Tab (Immediate Release)) 5 - 10 mg PO Q4H PRN PRN Reason: Pain & Pre PT Stop: 02/17/22 15:55 Last Admin: 02/04/22 09:30 Dose: 10 mg Polyethylene Glycol (Polyethylene (Miralax) 17 Gm Pack) 17 gm PO Q6 DEAN Stop: 03/06/22 05:59 Last Admin: 02/04/22 05:45 Dose: 17 gm Saccharomyces Boulardii (Saccharomyces Boulardii 250 Mg Cap) 250 mg PO QPM DEAN Stop: 03/05/22 20:59 Last Admin: 02/03/22 21:11 Dose: 250 mg Senna/Docusate Sodium (Docusate Sodium/Senna 50/8.6mg Tab) 2 tab PO HS DEAN Stop: 03/05/22 20:59 Last Admin: 02/03/22 21:10 Dose: 2 tab Sodium Biphosphate/Sodium Phosphate (Sod Phosphate/Sod Biphosphate Enema 132 Ml Btl) 132 ml NH ONE PRN PRN Reason: Constipation Stop: 03/05/22 15:55 Tramadol HCl (Tramadol Hcl 50 Mg Tablet) 50 - 100 mg PO Q4H PRN PRN Reason: Moderate-Severe pain & Pre PT Stop: 03/05/22 15:55 Trazodone HCl (Trazodone Hcl 50 Mg Tab) 50 mg PO [facility] Stop: 03/05/22 20:59 Last Admin: 02/03/22 21:11 Dose: 50 mg Vitamin B Complex (Vitamin B Complex Tab) 1 [facility] [place] [facility] [place]: 03/06/22 08:59 Last Admin: 02/04/22 09:28 Dose: 1 tab
[2022-02-04] MEDS: DOCUSATE SODIUM/SENNA 50/8.6MG TAB PO SCH (20:51)
[2022-02-04] MEDS: SACCHAROMYCES BOULARDII 250 MG CAP PO SCH (20:51)
[2022-02-04] MEDS: traZODone HCL 50 MG TAB PO SCH (20:51)
[2022-02-05] MEDS: POLYETHYLENE (MIRALAX) 17 GM PACK PO SCH ×4 (01:24→18:03)
[2022-02-05] MEDS: oxyCODONE HCL IR 5 MG TAB (IMMEDIATE RELEASE) PO PRN ×5 (01:31→22:04)
[2022-02-05 07:48] LABS: Hematocrit (blood only) 39.6 % (34.1-44.9); Hemoglobin 13.6 g/dl (12.0-16.0); Mean Corpuscular Hemoglobin 31.4 pg (25.0-34.0); Mean Corpuscular Hgb Conc 34.3 g/dL (32.0-36.0); Mean Corpuscular Volume 91.5 fL (80.0-100.0); Mean Platelet Volume 9.6 fL (9.4-12.3); Platelet Count 217 K/uL (130-400); RDW Coefficient of Variation 13.7 % (11.5-14.5); RDW Standard Deviation 46.6 fL (36.4-46.3); Red Blood Count 4.33 M/uL (3.93-5.22); White Blood Count 15.44 K/ul (4.8-10.8)
--- NOTE | 2022-02-05 08:33 | Orthopedic Progress Note ---
Date of Service February 05, 2022 Assessment & Plan (1) Neurogenic claudication due to lumbar spinal stenosis: Plan: Patient is postoperative day 2 status post lumbar decompression and fusion. We will continue with physical therapy today. Maintain BRAXTON drain. DVT prophylaxis is in the form teds and SCDs. Will reconsult social scientist for evaluation of rehab versus SNF approval upon discharge. Admission and Anticipated Discharge Date Admission Date: February 03, 2022 Subjective Elo is postoperative day 2 status post lumbar decompression and fusion. Pain is controlled. She is passing flatus but no bowel movement. BRAXTON drain output last shift was 40 cc. Yesterday in physical therapy ambling roughly 25 feet. H&H this morning at 13.6 and 39.6 respectively. Review of Systems Review of Systems: All systems reviewed & are unremarkable except as noted in HPI & below Physical Exam Physical Exam: Lying in bed in no acute distress Alert and oriented x3 lumbar dressing is clean dry and intact with functioning BRAXTON drain Strength is intact bilateral lower extremities Calf soft nontender bilaterally Results & Data ([facility]) Vital Signs (Past 12 Hours) Vital Signs Temp Pulse Resp BP Pulse Ox O2 Del Method 02/05/22 07:11 37 C 71 16 104/64 94 Room Air 02/04/22 20:51 Room Air 02/04/22 20:57 37.1 C 66 16 105/68 94 Room Air
[2022-02-05 08:39] LABS: BUN Creatinine Ratio 22.2 (10-20); Calcium 8.7 mg/dl (8.5-10.1); Creatinine Clr Calc Pharmacy 69.6 ml/min; Est GFR (African American) 84.7 ml/min; Est GFR (Non-African American) 73.1 ml/min; Potassium 4.2 mmol/L (3.5-5.1)
[2022-02-05] MEDS: CALCIUM 600MG + VIT D 400 IU TAB PO SCH (09:17)
[2022-02-05] MEDS: ASCORBIC ACID 500 MG TAB PO SCH (09:17)
[2022-02-05] MEDS: NICOTINE 21 MG/24 HR TDSY TD SCH (09:18)
[2022-02-05] MEDS: VITAMIN B COMPLEX TAB PO SCH (09:18)
[2022-02-05] MEDS: dexAMETHasone 6 MG in SYRINGE 0 ML IV SCH (09:18)
--- NOTE | 2022-02-05 09:32 | Hospitalist Progress Note ---
Date of Service February 05, 2022 Assessment & Plan (1) Neurogenic claudication due to lumbar spinal stenosis: (2) Lumbosacral radiculopathy at L4: (3) Hypertension: (4) COPD (chronic obstructive pulmonary disease): Plan Pt is a 71 y/o female who presents to the [facility] for a scheduled lumbar decompression with Dr. Zapien after failed outpatient conservative measures were taken. Medicine service has been consulted for medical management. Neurogenic Claudication d/t lumbar spinal stenosis Lumbar sacral Radiculopathy at L4 POD #2. #1 lumbar decompression with bilateral medial facetectomies and foraminotomies L2-L3, L3-L4 L4-5. #2 posterior spinal fusion L3-L4 L4-5. #3 placement posterior instrumentation L3-L4 L4-L5. Monitor BRAXTON drain Hgb on 01/10/22 17.8, hgb 13.6 today PT/OT to start 02/04 Dr. Zapien to manage wound, pain and bowel regimens. HTN: BP on lower side cont. to hold HCTZ and amlodipine today resume when bp normalizes COPD: Uses rescue inhaler at home ISB ordered Off O2, continue to encourage incentive spirometry, discussed at bedside Hypokalemia replete and monitor Tobacco abuse nicotine patch ordered encourage cessation Code Status: Full Code PCP: Dr. Choi VTE Prophylaxis: TEDS and SCDs; otherwise defer to Ortho Dispo: CM involved - pt interested in rehab/SNF, primary team aware Thank you for this consultation. We will follow the patient with you during their hospital stay. You can reach a member of the [facility] Hospitalist Team 05/01 via hospitalist role on tiger text. Admission and Anticipated Discharge Date Admission Date: February 03, 2022 Subjective Patient seen in follow up in consultation s/p lumbar surgery She is sitting up in bed in NAD. But reports lower back pain and inquires about poss. rehab/SNF - primary (ortho) team aware. No fevers, chills, chest pain, shortness of breath. Has history of COPD, and reports she could use her as needed inhaler. RN aware. Goldman catheter was removed this morning. Patient has not voided yet. She is eating well. No nausea or vomiting. No BM yet. Review of Systems Review of Systems: All systems reviewed & are unremarkable except as noted in Subjective Physical Exam Physical Exam: Gen: elderly obese F, NAD, A&O x3 HE ENT: Normocephalic , atraumatic, conj unctivae moist, sc lerae anicteric, m ucous membranes mo ist. Lung: Clear t o Auscultation kristina aterally, scant ex piratory wheeze bi laterally, no rale s or rhonchi Hear t: Regular rate, r egular rhythm, no murmurs, rubs, or gallops Abdomen: S oft, NT, ND +BS x 4 Extremities: No edema, lumbar dres sing CDI, BRAXTON drain with serosanguine ous drainage, move s extremities Skin : Warm, no rash, n egative turgor. Results & Data Results & Data ([facility]) Vital Signs (Past 12 Hours) Vital Signs Temp Pulse Resp BP Pulse Ox O2 Del Method 02/05/22 07:11 37 C 71 16 104/64 94 Room Air Laboratory Results 02/05/22 02/05/22 02/03/22 Range/Units 07:24 07:24 10:19 WBC 15.44 H (4.8-10.8) K/ul RBC 4.33 (3.93-5.22) M/uL Hgb 13.6 (12.0-16.0) g/dl Hct 39.6 (34.1-44.9) % MCV 91.5 (80.0-100.0) fL MCH 31.4 (25.0-34.0) pg MCHC 34.3 (32.0-36.0) g/dL RDW Std Deviation 46.6 H (36.4-46.3) fL RDW Coeff of Holger 13.7 (11.5-14.5) % Plt Count 217 (130-400) K/uL MPV 9.6 (9.4-12.3) fL Sodium 133 L (136-145) mmol/L Potassium 4.2 D (3.5-5.1) mmol/L Chloride 102 (98-107) mmol/L Carbon Dioxide 26 (21-32) mmol/L Anion Gap 5 (3-11) BUN 18 (6-23) mg/dl Creatinine 0.81 (0.6-1.2) mg/dl Est Cr Clr Drug Dosing 69.6 ml/min Est GFR ( Amer) 84.7 ml/min Est GFR (Non-Af Amer) 73.1 ml/min BUN/Creatinine Ratio 22.2 H (10-20) Glucose 154 H (70-99(Fasting)) mg/dl Calcium 8.7 (8.5-10.1) mg/dl Crossmatch See Detail Medications Administered Current Inpatient Medications Acetaminophen (Acetaminophen 500 Mg Tab) 1,000 mg PO Q8H PRN PRN Reason: MILD Pain Scale 1,2,3 & Pre PT Stop: 03/05/22 16:59 Al Hydrox/Mg Hydrox/Simethicone (Aluminum/Magnesium Susp 30 Ml Udc) 30 ml PO Q6H PRN PRN Reason: Dyspepsia Stop: 03/05/22 15:55 Albuterol (Albuterol 0.083% Nebu Soln 3 Ml Vial) 2.5 mg INH Q4R PRN; Protocol PRN Reason: Shortness Of Breath Or Wheezing Stop: 03/05/22 15:55 Albuterol (Albuterol Hfa 8 Gm Inhaler) 2 puffs INH Q4R PRN PRN Reason: Shortness Of Breath Or Wheezing Stop: 03/05/22 15:55 Amlodipine Besylate (Amlodipine Besylate 5 Mg Tab) 2.5 mg PO QAM DEAN Stop: 03/06/22 08:59 Ascorbic Acid (Ascorbic Acid 500 Mg Tab) 250 mg PO QAM DEAN Stop: 03/06/22 08:59 Last Admin: 02/05/22 09:17 Dose: 250 mg Bisacodyl (Bisacodyl 10 Mg Supp) 10 mg MO DAILY PRN PRN Reason: Constipation Stop: 03/05/22 15:55 Diphenhydramine HCl (Diphenhydramine Capsule 25 Mg Cap) 25 mg PO Q6H PRN PRN Reason: Allergic Rhinitis/Insomnia Stop: 03/05/22 15:55 Famotidine (Famotidine 20 Mg Tab) 20 mg PO Q12H PRN PRN Reason: Dyspepsia Stop: 03/05/22 15:55 Hydrochlorothiazide (Hydrochlorothiazide 25 Mg Tab) 25 mg PO QAM DEAN Stop: 03/06/22 08:59 Hydromorphone HCl (Hydromorphone Inj 0.5 Mg/0.5 Ml Syr) 0.5 mg IV Q3H PRN PRN Reason: MODERATE Pain (Scale 4,5,6) & Pre PT Stop: 02/17/22 15:55 Last Admin: 02/03/22 21:25 Dose: 0.5 mg Hydromorphone HCl (Hydromorphone Inj 1 Mg/Ml Syringe) 1 mg IV Q3H PRN PRN Reason: SEVERE Pain (Scale 7,8,9,10) Stop: 02/17/22 15:55 Hydroxyzine HCl (Hydroxyzine Hcl 25 Mg Tab) 25 mg PO Q8H PRN PRN Reason: Anxiety Stop: 03/05/22 15:55 Promethazine HCl 12.5 mg/ (Sodium Chloride) 50.5 mls @ 202 mls/hr IV Q6H PRN PRN Reason: Nausea &/or Vomiting Stop: 03/05/22 15:55 Lorazepam 0.5 mg/ Syringe 0.5 mls @ 2 mls/min IV Q8H PRN PRN Reason: Sedation/Anxiety Stop: 03/05/22 15:55 Dexamethasone 6 mg/ Syringe 1.5 mls @ 1 mls/min IV DAILY DEAN Stop: 02/06/22 09:02 Last Admin: 02/05/22 09:18 Dose: 1 mls/min Lorazepam (Lorazepam 0.5 Mg Tab) 0.5 mg PO Q8H PRN PRN Reason: Sedation/Anxiety Stop: 03/05/22 15:55 Magnesium Hydroxide (Magnesium Hydroxide Susp 30 Ml Udc) 30 ml PO Q24H PRN PRN Reason: Constipation Stop: 03/05/22 15:55 Metoclopramide HCl (Metoclopramide Hcl Inj 5 Mg/Ml 2 Ml Vial) 10 mg IV Q6H PRN PRN Reason: Nausea &/or Vomiting Stop: 03/05/22 15:55 Last Admin: 02/04/22 03:38 Dose: 10 mg Miscellaneous (Remove Nicoderm Patch) 1 each N/A DAILY@0859 [facility] Stop: 03/06/22 08:58 Last Admin: 02/05/22 09:18 Dose: 1 each Multivitamins/Minerals (Calcium 600mg + Vit D 400 Iu Tab) 1 tab PO QAM [facility] Stop: 03/06/22 08:59 Last Admin: 02/05/22 09:17 Dose: 1 tab Naloxone HCl (Naloxone Hcl 0.4 Mg/1 Ml Vial/Carp) 0.1 mg IV Q5M PRN PRN Reason: Oversedation/Resp depression Stop: 03/05/22 15:55 Nicotine (Nicotine 21 Mg/24 Hr Tdsy) 21 mg TD QAM DEAN Stop: 03/06/22 08:59 Last Admin: 02/05/22 09:18 Dose: 21 mg Ondansetron HCl (Ondansetron Inj 2 Mg/Ml 2 Ml Vial) 4 mg IV Q6H PRN PRN Reason: Nausea &/or Vomiting Stop: 03/05/22 15:55 Last Admin: 02/04/22 09:30 Dose: 4 mg Ondansetron HCl (Ondansetron 4 Mg Od Tab) 4 mg PO Q6H PRN PRN Reason: Nausea Stop: 03/05/22 15:55 Oxycodone HCl (Oxycodone Hcl Ir 5 Mg Tab (Immediate Release)) 5 - 10 mg PO Q4H PRN PRN Reason: Pain & Pre PT Stop: 02/17/22 15:55 Last Admin: 02/05/22 06:30 Dose: 10 mg Polyethylene Glycol (Polyethylene (Miralax) 17 Gm Pack) 17 gm PO Q6 DEAN Stop: 03/06/22 05:59 Last Admin: 02/05/22 05:44 Dose: 17 gm Saccharomyces Boulardii (Saccharomyces Boulardii 250 Mg Cap) 250 mg PO QPM DEAN Stop: 03/05/22 20:59 Last Admin: 02/04/22 20:51 Dose: 250 mg Senna/Docusate Sodium (Docusate Sodium/Senna 50/8.6mg Tab) 2 tab PO HS DEAN Stop: 03/05/22 20:59 Last Admin: 02/04/22 20:51 Dose: 2 tab Sodium Biphosphate/Sodium Phosphate (Sod Phosphate/Sod Biphosphate Enema 132 Ml Btl) 132 ml MO ONE PRN PRN Reason: Constipation Stop: 03/05/22 15:55 Tramadol HCl (Tramadol Hcl 50 Mg Tablet) 50 - 100 mg PO Q4H PRN PRN Reason: Moderate-Severe pain & Pre PT Stop: 03/05/22 15:55 Trazodone HCl (Trazodone Hcl 50 Mg Tab) 50 mg PO HS [facility] Stop: 03/05/22 20:59 Last Admin: 02/04/22 20:51 Dose: 50 mg Vitamin B Complex (Vitamin B Complex Tab) [facility] Stop: 03/06/22 08:59 Last Admin: 02/05/22 09:18 Dose: 1 tab
[2022-02-05] MEDS: ALBUTEROL HFA 8 GM INHALER INH PRN ×2 (09:35→14:59)
[2022-02-05] MEDS: DOCUSATE SODIUM/SENNA 50/8.6MG TAB PO SCH (21:51)
[2022-02-05] MEDS: SACCHAROMYCES BOULARDII 250 MG CAP PO SCH (21:52)
[2022-02-05] MEDS: traZODone HCL 50 MG TAB PO SCH (21:52)
[2022-02-06 07:00] LABS: Hematocrit (blood only) 37.5 % (34.1-44.9); Hemoglobin 12.9 g/dl (12.0-16.0); Mean Corpuscular Hemoglobin 31.7 pg (25.0-34.0); Mean Corpuscular Hgb Conc 34.4 g/dL (32.0-36.0); Mean Corpuscular Volume 92.1 fL (80.0-100.0); Mean Platelet Volume 9.9 fL (9.4-12.3); Platelet Count 222 K/uL (130-400); RDW Coefficient of Variation 13.9 % (11.5-14.5); RDW Standard Deviation 47.6 fL (36.4-46.3); Red Blood Count 4.07 M/uL (3.93-5.22); White Blood Count 14.49 K/ul (4.8-10.8)
[2022-02-06 07:26] LABS: Calcium 8.9 mg/dl (8.5-10.1); Creatinine Clr Calc Pharmacy 82.9 ml/min; Potassium 4.1 mmol/L (3.5-5.1)
[2022-02-06] MEDS: oxyCODONE HCL IR 5 MG TAB (IMMEDIATE RELEASE) PO PRN ×3 (07:48→15:23)
[2022-02-06] MEDS: dexAMETHasone 6 MG in SYRINGE 0 ML IV SCH (09:15)
[2022-02-06] MEDS: VITAMIN B COMPLEX TAB PO SCH (09:15)
[2022-02-06] MEDS: ASCORBIC ACID 500 MG TAB PO SCH (09:15)
[2022-02-06] MEDS: CALCIUM 600MG + VIT D 400 IU TAB PO SCH (09:16)
[2022-02-06] MEDS: NICOTINE 21 MG/24 HR TDSY TD SCH (09:16)
--- NOTE | 2022-02-06 10:15 | Discharge Summary ---
Date of Service February 06, 2022 Admission HPI Per Admitting Provider This is a 71-year-old female who presents with significant back and bilateral leg pain. Failing course of nonoperative care is here for surgical invention. Admission Exam (Per Admitting) Constitutional WD/WN, vitals as above Eyes normal visual valenzuela by confrontation ENMT external ear and nose normal, oropharynx normal Neck normal visual inspection Respiratory normal respiratory effort Cardiovascular Extremities: normal capillary refill Gastrointestinal (Abdomen) Inspection/Auscultation: abdomen normal to inspection Musculoskeletal Spine: + pain with thoraco-lumbar ROM Extremities: extremities normal to inspection and strength 5/5 throughout Skin no rashes, warm and dry Neurologic normal touch/pain/proprioception and moves all extremities Psychiatric A+Ox3, euthymic affect Eye Contact: good eye contact Speech: normal rate/rhythm/volume of speech Discharge Data Consultations 02/03/22 15:56 Consult Hospitalist Routine Procedures Performed Operation Date: 02/03/22 11:25 Actual Procedures p L3-L5 Decompression and Fusion, Spinal Cord Monitoring - Basil Zapien DO Hospital Course (1) Neurogenic claudication due to lumbar spinal stenosis: Elo is being discharged home on POD3 s/p PSF L3-5. She has had an uneventful hospital course. Pain in controlled. She's had a bowel movement this morning. She has progressed daily with physical therapy. Lab values have been stable.
[2022-02-06 11:44] VITALS: BP 116/68; TEMP 98.6
[2022-02-06] MEDS: ALBUTEROL HFA 8 GM INHALER INH PRN (13:00)
[2022-02-06 13:01] VITALS: PULSE 64; O2SAT 94
--- NOTE | 2022-02-06 14:33 | Hospitalist Progress Note ---
Date of Service February 06, 2022 Assessment & Plan (1) Neurogenic claudication due to lumbar spinal stenosis: (2) Lumbosacral radiculopathy at L4: (3) Hypertension: (4) COPD (chronic obstructive pulmonary disease): Plan Pt is a 71 y/o female who presents to the [facility] [place] for a scheduled lumbar decompression with Dr. Zapien after failed outpatient conservative measures were taken. Medicine service has been consulted for medical management. Neurogenic Claudication d/t lumbar spinal stenosis Lumbar sacral radiculopathy at L4 POD #3. #1 lumbar decompression with bilateral medial facetectomies and foraminotomies L2-L3, L3-L4 L4-5. #2 posterior spinal fusion L3-L4 L4-5. #3 placement posterior instrumentation L3-L4 L4-L5. Monitor BRAXTON drain Per ortho for pain control, wound care, anticoagulation and activities Stable Hgb of 12.9 (from 13.6) Continue incentive spirometry, PT/OT HTN: Hypotension resolved. Resumed amlodipine today, resume hctz tomorrow COPD: Uses rescue inhaler at home ISB ordered Off O2, continue to encourage incentive spirometry, discussed at bedside Hypokalemia replete and monitor Tobacco abuse nicotine patch ordered encourage cessation Code Status: Full Code PCP: Dr. Choi VTE Prophylaxis: TEDS and SCDs; otherwise defer to Ortho Dispo: CM involved - pt interested in rehab/SNF, primary team aware Thank you for this consultation. We will follow the patient with you during their hospital stay. You can reach a member of the [facility] Hospitalist Team 05/01 via hospitalist role on tiger text. Admission and Anticipated Discharge Date Admission Date: February 03, 2022 Supervising Physician Co-Signing Physician Notes Patient is seen and examined at bedside. Patient is doing well postoperatively. Complains of minimal pain at surgical site. Otherwise denies any chest pain, shortness of breath, dizziness, nausea, abdominal pain. On exam patient is obese, no apparent distress, normocephalic atraumatic, EOMI, decreased breath sounds, clear to auscultation, S1-S2, no murmur, abdomen soft, nontender, normal bowel sounds, alert, awake, oriented, grossly no focal deficits, trace pedal edema. S/P lumbar surgery for neurogenic claudication secondary to lumbar spinal stenosis. Pain is controlled. Continue PT OT. Postoperative acute blood loss anemia. Wound care, DVT prophylaxis and pain management as per primary team. Leukocytosis secondary to Decadron likely. No obvious source of infection. Counseled to quit smoking. Replace electrolytes as needed. I personally reviewed the record. Patient is interviewed and examined at bedside. Patient's care is coordinated with Katelyn Courtney PA-C. Please refer to the documentation above for details of patient's presentation and for discussion of other issues. Subjective Patient seen in follow up in consultation s/p lumbar surgery. Feeling better today and participating in therapy without issue. Some surgical site discomfort prescribed pain meds by RN. Tolerating diet without issue. Had bowel movements overnight. Patient feels ready for discharge. No fevers, chills, chest pain, shortness of breath, nausea, vomiting, abdominal pain, dysuria, diarrhea constipation. Has history of COPD, and reports she could use her as needed inhaler. Review of Systems Review of Systems: At least ten systems reviewed and negative except as noted in the HPI. Physical Exam Physical Exam: Gen: WD/WN, NAD, sitting up in bed, A&Ox3 HEENT: Normocephalic, atraumatic, conjunctivae moist, sclerae anicteric, mucous membranes moist Lung: Clear to Auscultation bilaterally, no wheezes/rales/rhonchi Heart: Regular rate, regular rhythm, no murmurs, rubs, or gallops Abdomen: Soft, NT, ND +BS x 4 Extremities: Spinal dressing c/d/i. BRAXTON drain visualized. No edema Skin: Warm, no rash Results & Data Results & Data ([facility]) Vital Signs (Past 12 Hours) Vital Signs Temp Pulse Resp BP Pulse Ox O2 Del Method 02/06/22 13:00 64 18 94 Room Air 02/06/22 11:43 37.0 C 60 18 116/68 96 Room Air 02/06/22 07:45 36.6 C 59 L 18 138/84 96 Room Air Laboratory Results Short CBC 02/06/22 Range/Units 06:26 WBC 14.49 H (4.8-10.8) K/ul Hgb 12.9 (12.0-16.0) g/dl Hct 37.5 (34.1-44.9) % Plt Count 222 (130-400) K/uL BMP 02/06/22 06:26 Sodium 134 L Potassium 4.1 Chloride 103 Carbon Dioxide 26 BUN 17 Creatinine 0.68 Glucose 117 H Calcium 8.9 Diagnostic Findings Lumbar Spine X-Ray 02/03/22 11:25 FL lumbar spine 2-3V CLINICAL HISTORY: L3-L5 DECOMPRESSION AND FUSION TECHNIQUE: 2 views were obtained with the C-arm in the OR with the above procedure. Total fluoroscopy time was 21.6 seconds. Total skin dose was 26.97 mGy. Comparison: Comparison is made to lumbar spine MRI 06/01/2015 FINDINGS/IMPRESSION: Intraoperative images were obtained of L3-L5 discectomy and fusion. Please correlate with intraoperative fluoroscopy and operative report. ACT 112: Negative or not required by law. Electronically signed by: Blake Morris M.D. 02/03/2022 2:31 PM
== END 2022-02-06 16:25 | disposition home or self-care (01) | DRG 454 ==
LOC: ASU 09:41 → 3E 14:32
DX: Z86.16 Personal history of COVID-19; D62 Acute posthemorrhagic anemia; J44.9 Chronic obstructive pulmonary disease, unspecified; Z68.34 Body mass index [BMI] 34.0-34.9, adult; Z91.040 Latex allergy status; F17.210 Nicotine dependence, cigarettes, uncomplicated; E66.9 Obesity, unspecified; Z91.041 Radiographic dye allergy status; Z83.3 Family history of diabetes mellitus; M54.17 Radiculopathy, lumbosacral region; Z96.641 Presence of right artificial hip joint; M48.062 Spinal stenosis, lumbar region with neurogenic claudication; I10 Essential (primary) hypertension

== ENCOUNTER 2022-11-01 12:37 | Inpatient (IN) ==
[2022-11-01] MEDS ORDERED: SODIUM CHLORIDE 0.9% 500 ML IV STA (13:04)
[2022-11-01] MEDS ORDERED: ALBUT/IPRATROP 3MG/0.5MG NEB 3 ML VIAL INH STA (13:04)
[2022-11-01] MEDS ORDERED: cefTRIAXone SODIUM 2,000 MG/70 ML BAG IV STA (13:10)
[2022-11-01] MEDS ORDERED: DOXYCYCLINE HYCLATE 100 MG CAP PO STA (13:10)
[2022-11-01] MEDS ORDERED: SODIUM CHLORIDE 0.9% 1000ML 1,000 ML IV ONE (13:12)
[2022-11-01 13:28] LABS: Basophils # (auto) 0.05 K/uL (0-0.2); Basophils % (auto) 0.5 %; Eosinophils # (auto) 0.12 K/uL (0-0.50); Eosinophils % (auto) 1.2 %; Hematocrit (blood only) 52.3 % (37.0-47.0); Hemoglobin 18.5 g/dl (12.0-16.0); Immature Granulocytes # (auto) 0.02 K/uL (0.01-0.20); Immature Granulocytes % (auto) 0.2 %; Lymphocytes # (auto) 2.42 K/uL (1.2-3.4); Lymphocytes % (auto) 25.2 %; Mean Corpuscular Hemoglobin 31.9 pg (25.0-34.0); Mean Corpuscular Hgb Conc 35.4 g/dL (32.0-36.0); Mean Corpuscular Volume 90.2 fL (80.0-100.0); Mean Platelet Volume 9.9 fL (9.4-12.4); Monocytes # (auto) 0.67 K/uL (0.11-0.59); Neutrophils # (auto) 6.33 K/uL (1.40-6.50); Neutrophils % (auto) 65.9 %; Platelet Count 254 K/uL (130-400); RDW Standard Deviation 46.6 fL (36.4-46.3); White Blood Count 9.61 K/ul (4.8-10.8)
[2022-11-01] MEDS: methylPREDNISolone 125 MG/2 ML VIAL IV STA ×2 (13:37→13:39)
[2022-11-01] MEDS: MAGNESIUM SULFATE / D5W 1 GM/100 ML BAG IV SCH ×2 (13:37→15:42)
[2022-11-01 13:45] LABS: Albumin Level 4.1 gm/dl (3.4-5.0); BUN Creatinine Ratio 22.1 (10-20); Bilirubin,Total 0.5 mg/dl (0.2-1.0); Calcium 9.5 mg/dl (8.6-10.3); Creatinine Clr Calc Pharmacy 54.5 ml/min; Est GFR (African American) 62.2 ml/min; Est GFR (Non-African American) 53.6 ml/min; Globulin 4.2 gm/dl (2.5-4.0); Magnesium 1.8 mg/dl (1.7-2.4); Potassium 4.3 mmol/L (3.5-5.1); Total Protein 8.3 gm/dl (6.0-8.3)
[2022-11-01 13:48] LABS: Base Excess VBG 5.3 mEq/L; HCO3 VBG 31 mmol/L; Oxygen Saturation VBG < 60.0 %; PCO2 VBG 49 mmHg (38-50); PO2 VBG 23 mmHg; pH VBG 7.41 (7.36-7.41)
[2022-11-01 13:51] LABS: Troponin I High Sensitivity 5.9 pg/ml (0-14)
--- NOTE | 2022-11-01 13:55 | Emergency Department Note ---
Impression & Plan COPD (chronic obstructive pulmonary disease), Atrial flutter with rapid ventricular response, Acute dehydration, Encounter for smoking cessation counseling ED Provider Note NAME: ADRIANA PENNY AGE: 72 SEX: F : 1950 ARRIVES VIA: Walk-In INFORMANT: Patient, ED PROVIDER(S): Keny Merino MD CHIEF COMPLAINT: Shortness of breath MEDICAL DECISION MAKING: Patient presents due to concern for shortness of breath ongoing for ap proximately the last 2 days. The patient has had associated cough. IV was established blood work was obtained and the patient was treated symptomatically with DuoNebs magnesium and steroids. The patient does have rhonchi throughout with associated wheezing and known history of COPD. Patient was noted to be in atrial flutter and does have a known history of A- fib. I counseled patient on smoking cessation for 3 minutes. Treatment options discussed and resources provided. Patient was receptive. Patient was ordered small amount of IV Lopressor and was ordered a Xopenex treatment as the patient has not had significant improvement in her shortness of breath. The patient has a normal white count with mild elevation in hemoglobin. The patient did receive IV fluids. Platelet count is normal. Kidney function grossly unremarkable. Patient's troponin is not elevated. Procalcitonin is not elevated. Patient was treated empirically with antibiotics given the patient's worsening respiratory status cough and known COPD. VBG does not show any acidosis. INR is therapeutic at 2.3. Lactate is not elevated at 1.9. Bio fire is positive for adenovirus as well as anterior rhino. Chest x-ray does not show any obvious pneumonia. I did speak with the on-call hospitalist service 1 Clara rose PA-C and the patient was admitted by Dr. Carrillo. Critical Care: I have personally spent 42 minutes of critical care time in direct management of this patient. This includes bedside care, interpretation of diagnostic studies, and testing, discussion with consultants, patient, and family members, and other require inpatient management activities. This 42 minutes is in excess of all separately billable procedures. Prior /Outside records reviewed: I did review a cardiology visit note from Dr. Oreilly from July 2022. Patient does have a known history of A-fib with RVR. She also has hypertension hyperlipidemia. Differential diagnosis: Reactive airway disease, pneumonia, pneumothorax, COPD, CHF, infections, cardiac ischemia, pulmonary embolism, musculoskeletal, gastrointestinal, as well as other pathologies. Diagnostics, as interpreted by me: ECG: A flutter, variable AV block, ventricular rate of 110 with normal QRS and normal axis. Cardiac monitoring: An order was placed for continuous cardiac monitoring. The monitor shows a rate of 112 with tachycardic and irregularly irregular rhythm. Patient was placed on pulse oximetry Medical decision rules: none Imaging studies: See below I informally reviewed the patient's chest x-ray which shows no obvious pneumoni a. HPI: Patient presents due to concern for shortness of breath ongoing for approximate 2 days in duration. Patient states that she is compliant with her medications. The patient does have a known history of COPD and has been using Hoare nebulizers every 4 hours but without significant improvement in symptoms. The patient has had productive cough. The patient is a smoker. Patient denies any falls or trauma no leg swelling or calf pain. The patient does have a known history of A-fib and is on Coumadin. Patient denies any leg swelling or calf pain. No recent surgeries procedures or hospitalizations. The patient does admit that she has not eaten or drank as much in the last 2 days. PAST MEDICAL HISTORY: See Below PAST SURGICAL HISTORY: See Below SOCIAL HISTORY: See Below HOME MEDICATIONS: See Below ALLERGIES: See Below VITALS: See Below PHYSICAL EXAMINATION: GENERAL: Mild distress, wearing glasses EYE EXAM: Normal conjunctiva. PERRL, no anisocoria and EOM's grossly intact w/o pain. NECK: Supple, no nuchal rigidity, no adenopathy, non-tender. No signs of meningismus. FROM of the neck with good chin to chest and neck extension. No stridor. LUNGS: Coarse sounds throughout with associated wheezes, normal chest wall mechanics. HEART: Tachycardic and irregularly irregular, no MRG. ABDOMEN: Abdomen soft, non-tender, no masses, no rebound or guarding. BACK: No CVA TTP. SKIN: No rashes and no bruising. UPPER EXTREMITIES: Upper extremities are grossly normal. LOWER EXTREMITIES: Grossly normal, no edema. Negative Homans' sign bilaterally. No calf pain or erythema NEURO EXAM: A&O x3, cranial nerves II-XII grossly intact, normal speech, moves all 4 extremities. Past Med/Surg History Medical History Chronic back pain Back to LLE COPD (chronic obstructive pulmonary disease) History of COVID-19 Dx 02/2021 > symptoms at time: loss of taste/smell, resolved Hypertension Lumbosacral radiculopathy at L4 Migraine Hx Tremor Hands, head. No definite diagnosis. Surgical History Breast cyst Removal Dislocation, hip closed Relocation under anesthesia (07/2021) H/O breast biopsy Benign History of bladder surgery History of cholecystectomy History of colonoscopy History of esophagogastroduodenoscopy (EGD) Nausea and vomiting after administration of anesthetic agent S/P hip replacement Right Family History Brother Family history of diabetes mellitus Family hx of colon cancer Brother Family history of diabetes mellitus Brother Family history of diabetes mellitus Daughter Family history of diabetes mellitus Aunt Family history of diabetes mellitus Aunt Family history of diabetes mellitus Aunt Family history of diabetes mellitus Social History Smoking Status: Current every day smoker Tobacco Type: Cigarettes Cigarettes Per Day: 1-1/2 ppd; Second Hand Exposure: No; Do You Dip or Chew Tobacco: No; Tobacco Cessation Education Requested by Patient: No Hx Alcohol Use: Yes Alcohol type: beer Hx Substance Use: No Preferred Language: Jamaican Communication Ability: Effective Kettle Chipper Required: No Beliefs That Will Affect Care: None Current Living Situation: Alone current occupational status: retired Other Information That Helps Us Care for You: No Feels Safe at Home: Yes Safety Concerns: Feels Safe At This Time Assistive Devices: Cane, Denture - Upper, Glasses and Walker Allergies Allergies Allergy/AdvReac Type Severity Reaction Status Date / Time iodine Allergy Intermediate Diffuse Verified 11/01/22 15:05 blistering latex Allergy Intermediate Blistering Verified 11/01/22 15:05 meperidine Allergy Intermediate "Shakes" Verified 11/01/22 15:05 prednisone Allergy Intermediate "Shakes" Verified 11/01/22 15:05 [id number] Reductase Allergy Intermediate "Shakes" Verified 11/01/22 15:05 Inhibitor [[id number] Reductase Inhibitor] oxycodone AdvReac Intermediate HALLUCINATI Verified 11/01/22 15:05 ONS/CONFUSI ON Home Meds Home Medications Medication Instructions Recorded Confirmed albuterol sulfate 2.5 mg/3 mL 2.5 mg inhalation Q4H PRN 08/25/21 11/01/22 (0.083 %) solution for nebulization Shortness Of Breath Or Wheezing albuterol sulfate 90 mcg/actuation 2 puff inhalation 6XD PRN 08/25/21 11/01/22 aerosol inhaler (ProAir HFA) Shortness Of Breath Or Wheezing amlodipine 2.5 mg tablet 2.5 mg PO QAM 08/25/21 11/01/22 hydrochlorothiazide 25 mg tablet 25 mg PO QAM 08/25/21 11/01/22 trazodone 50 mg tablet 50 mg PO HS 08/25/21 11/01/22 acetaminophen 650 mg 1,300 mg PO DAILY PRN Pain 01/21/22 11/01/22 tablet,extended release lactobacillus combination no.4 3 3,000 mmu cells PO QPM 01/21/22 11/01/22 billion cell capsule (Probiotic) magnesium 250 mg tablet 250 mg PO DAILY 04/13/22 11/01/22 metoprolol succinate 50 mg 50 mg PO QAM 11/01/22 11/01/22 tablet,extended release 24 hr multivitamin-ferrous 1 tab PO QAM 11/01/22 11/01/22 fumarate-folic acid 18 mg-400 mcg tablet warfarin 5 mg tablet 5 mg PO QPM 11/01/22 11/01/22 Results & Data (ED) Vital Signs Vital Signs - 24 hr 11/01/22 12:41 11/01/22 13:00 11/01/22 13:00 Temperature 36.7 C Temperature Source Temporal Artery Scan Pulse Rate 81 Pulse Rate [Left Finger] 128 H Pulse Rate from SpO2 Sensor Pulse Rhythm Pulse Rhythm [Left Finger] Irregular Pulse Strength [Left Finger] Normal Respiratory Rate 22 20 Respiratory Effort / Characteristics Spontaneous Labored Non-Labored Spontaneous Respiratory Depth Normal Normal Respiratory Pattern Regular Regular Blood Pressure 103/75 Blood Pressure [Left Arm] 136/110 H Blood Pressure Mean 84 Blood Pressure Mean [Left Arm] 118 Blood Pressure Position [Left Arm] Lying Pulse Oximetry 93 98 Oxygen Delivery Method Room Air Room Air Room Air Oxygen Flow Rate 95 Sepsis Recent Fever Within 48 Hours No Sepsis New/Unexplained Change in Mental Status No Sepsis Action Taken by Nursing No Action Required 11/01/22 13:10 11/01/22 13:09 11/01/22 13:03 Temperature Temperature Source Pulse Rate 117 H 154 H 145 H Pulse Rate [Left Finger] Pulse Rate from SpO2 Sensor 109 H Pulse Rhythm Irregular Pulse Rhythm [Left Finger] Pulse Strength [Left Finger] Respiratory Rate 14 24 Respiratory Effort / Characteristics Respiratory Depth Respiratory Pattern Blood Pressure Blood Pressure [Left Arm] Blood Pressure Mean Blood Pressure Mean [Left Arm] Blood Pressure Position [Left Arm] Pulse Oximetry 95 96 Oxygen Delivery Method Room Air Oxygen Flow Rate Sepsis Recent Fever Within 48 Hours Sepsis New/Unexplained Change in Mental Status Sepsis Action Taken by Nursing 11/01/22 13:00 11/01/22 13:10 11/01/22 13:20 Temperature Temperature Source Pulse Rate 108 H 115 H Pulse Rate [Left Finger] Pulse Rate from SpO2 Sensor 86 215 H Pulse Rhythm Pulse Rhythm [Left Finger] Pulse Strength [Left Finger] Respiratory Rate 13 16 Respiratory Effort / Characteristics Spontaneous SOB on Exertion Respiratory Depth Normal Respiratory Pattern Blood Pressure Blood Pressure [Left Arm] Blood Pressure Mean Blood Pressure Mean [Left Arm] Blood Pressure Position [Left Arm] Pulse Oximetry 94 93 Oxygen Delivery Method Oxygen Flow Rate Sepsis Recent Fever Within 48 Hours Sepsis New/Unexplained Change in Mental Status Sepsis Action Taken by Nursing 11/01/22 13:30 11/01/22 13:30 11/01/22 13:40 Temperature Temperature Source Pulse Rate 100 H 114 H Pulse Rate [Left Finger] Pulse Rate from SpO2 Sensor 91 H Pulse Rhythm Pulse Rhythm [Left Finger] Pulse Strength [Left Finger] Respiratory Rate 22 28 H Respiratory Effort / Characteristics Respiratory Depth Respiratory Pattern Blood Pressure 118/79 Blood Pressure [Left Arm] Blood Pressure Mean 92 Blood Pressure Mean [Left Arm] Blood Pressure Position [Left Arm] Pulse Oximetry 91 Oxygen Delivery Method Oxygen Flow Rate Sepsis Recent Fever Within 48 Hours Sepsis New/Unexplained Change in Mental Status Sepsis Action Taken by Nursing 11/01/22 13:50 11/01/22 14:00 11/01/22 14:10 Temperature Temperature Source Pulse Rate 102 H 108 H 119 H Pulse Rate [Left Finger] Pulse Rate from SpO2 Sensor 84 97 H Pulse Rhythm Pulse Rhythm [Left Finger] Pulse Strength [Left Finger] Respiratory Rate 17 19 22 Respiratory Effort / Characteristics Respiratory Depth Respiratory Pattern Blood Pressure Blood Pressure [Left Arm] Blood Pressure Mean Blood Pressure Mean [Left Arm] Blood Pressure Position [Left Arm] Pulse Oximetry 100 94 Oxygen Delivery Method Oxygen Flow Rate Sepsis Recent Fever Within 48 Hours Sepsis New/Unexplained Change in Mental Status Sepsis Action Taken by Nursing 11/01/22 14:20 11/01/22 14:30 11/01/22 14:40 Temperature Temperature Source Pulse Rate 111 H 120 H 100 H Pulse Rate [Left Finger] Pulse Rate from SpO2 Sensor 94 H 92 H 95 H Pulse Rhythm Pulse Rhythm [Left Finger] Pulse Strength [Left Finger] Respiratory Rate 31 H 21 32 H Respiratory Effort / Characteristics Respiratory Depth Respiratory Pattern Blood Pressure Blood Pressure [Left Arm] Blood Pressure Mean Blood Pressure Mean [Left Arm] Blood Pressure Position [Left Arm] Pulse Oximetry 94 94 96 Oxygen Delivery Method Oxygen Flow Rate Sepsis Recent Fever Within 48 Hours Sepsis New/Unexplained Change in Mental Status Sepsis Action Taken by Shelter Medications Current Medication List: was personally reviewed by me Laboratory Data Attestation: I reviewed the patient's lab results. 11/01/22 13:13 11/01/22 13:13 Lab Results 11/01/22 11/01/22 11/01/22 Range/Units 13:13 13:13 13:13 WBC 9.61 (4.8-10.8) K/ul RBC 5.80 H (4.20-5.40) M/uL Hgb 18.5 H (12.0-16.0) g/dl Hct 52.3 H (37.0-47.0) % MCV 90.2 (80.0-100.0) fL MCH 31.9 (25.0-34.0) pg MCHC 35.4 (32.0-36.0) g/dL RDW Std Deviation 46.6 H (36.4-46.3) fL RDW Coeff of Holger 14.0 (11.5-14.5) % Plt Count 254 (130-400) K/uL MPV 9.9 (9.4-12.4) fL Immature Gran % (Auto) 0.2 % Neut % (Auto) 65.9 % Lymph % (Auto) 25.2 % [place] % (Auto) 7.0 % Eos % (Auto) 1.2 % Baso % (Auto) 0.5 % Neut # (Auto) 6.33 (1.40-6.50) K/uL Lymph # (Auto) 2.42 (1.2-3.4) K/uL [place] # (Auto) 0.67 H (0.11-0.59) K/uL Eos # (Auto) 0.12 (0-0.50) K/uL Baso # (Auto) 0.05 (0-0.2) K/uL Immature Gran # (Auto) 0.02 (0.01-0.20) K/uL PT (9.0-12.0) Seconds INR (0.9-1.1) APTT (21.0-31.0) Seconds PTT Ratio VBG pH (7.36-7.41) VBG pCO2 (38-50) mmHg VBG pO2 mmHg VBG HCO3 mmol/L VBG O2 Saturation % VBG Base Excess mEq/L Sodium 136 (136-145) mmol/L Potassium 4.3 (3.5-5.1) mmol/L Chloride 103 (98-107) mmol/L Carbon Dioxide 25 (21-32) mmol/L Anion Gap 8 (3-11) BUN 23 (6-23) mg/dl Creatinine 1.04 (0.6-1.2) mg/dl Est Cr Clr Drug Dosing 54.5 ml/min Est GFR ( Amer) 62.2 ml/min Est GFR (Non-Af Amer) 53.6 ml/min BUN/Creatinine Ratio 22.1 H (10-20) Glucose 116 H (70-99(Fasting)) mg/dl Lactate (0.4-2.0) mmol/L Calcium 9.5 (8.6-10.3) mg/dl Magnesium 1.8 (1.7-2.4) mg/dl Total Bilirubin 0.5 (0.2-1.0) mg/dl AST 27 (13-39) U/L ALT 27 (7-52) U/L Alkaline Phosphatase 75 (34-104) U/L Troponin I High Sens 5.9 (0-14) pg/ml Total Protein 8.3 (6.0-8.3) gm/dl Albumin 4.1 (3.4-5.0) gm/dl Globulin 4.2 H (2.5-4.0) gm/dl Albumin/Globulin Ratio 1.0 (0.9-2) Procalcitonin < 0.05 (0-0.5) ng/ml Adenovirus (PCR) (NotDetected) B. pertussis DNA (PCR) (NotDetected) B.parapertussis DNA PCR (NotDetected) C. pneumoniae DNA (PCR) (NotDetected) Coronavirus OC43 (PCR) (NotDetected) Coronavirus HKU1 (PCR) (NotDetected) Coronavirus 229E (PCR) (NotDetected) SARS-CoV-2 (PCR) (NotDetected) Coronavirus NL63 (PCR) (NotDetected) Human Metapneumovir PCR (NotDetected) Influenza Type A (PCR) (NotDetected) Influenza Type B (PCR) (NotDetected) M. pneumoniae (PCR) (NotDetected) Parainfluenza 1 (PCR) (NotDetected) Parainfluenza 2 (PCR) (NotDetected) Parainfluenza 3 (PCR) (NotDetected) Parainfluenza 4 (PCR) (NotDetected) RSV (PCR) (NotDetected) Entero/Rhino (PCR) (NotDetected) 11/01/22 11/01/22 11/01/22 Range/Units 13:13 13:13 13:13 WBC (4.8-10.8) K/ul RBC (4.20-5.40) M/uL Hgb (12.0-16.0) g/dl Hct (37.0-47.0) % MCV (80.0-100.0) fL MCH (25.0-34.0) pg MCHC (32.0-36.0) g/dL RDW Std Deviation (36.4-46.3) fL RDW Coeff of Holger (11.5-14.5) % Plt Count (130-400) K/uL MPV (9.4-12.4) fL Immature Gran % (Auto) % Neut % (Auto) % Lymph % (Auto) % [place] % (Auto) % Eos % (Auto) % Baso % (Auto) % Neut # (Auto) (1.40-6.50) K/uL Lymph # (Auto) (1.2-3.4) K/uL [place] # (Auto) (0.11-0.59) K/uL Eos # (Auto) (0-0.50) K/uL Baso # (Auto) (0-0.2) K/uL Immature Gran # (Auto) (0.01-0.20) K/uL PT 23.5 H (9.0-12.0) Seconds INR 2.3 H (0.9-1.1) APTT 39.3 H (21.0-31.0) Seconds PTT Ratio 1.4 VBG pH 7.41 (7.36-7.41) VBG pCO2 49 (38-50) mmHg VBG pO2 23 mmHg VBG HCO3 31 mmol/L VBG O2 Saturation < 60.0 % VBG Base Excess 5.3 mEq/L Sodium (136-145) mmol/L Potassium (3.5-5.1) mmol/L Chloride (98-107) mmol/L Carbon Dioxide (21-32) mmol/L Anion Gap (3-11) BUN (6-23) mg/dl Creatinine (0.6-1.2) mg/dl Est Cr Clr Drug Dosing ml/min Est GFR ( Amer) ml/min Est GFR (Non-Af Amer) ml/min BUN/Creatinine Ratio (10-20) Glucose (70-99(Fasting)) mg/dl Lactate 1.9 (0.4-2.0) mmol/L Calcium (8.6-10.3) mg/dl Magnesium (1.7-2.4) mg/dl Total Bilirubin (0.2-1.0) mg/dl AST (13-39) U/L ALT (7-52) U/L Alkaline Phosphatase (34-104) U/L Troponin I High Sens (0-14) pg/ml Total Protein (6.0-8.3) gm/dl Albumin (3.4-5.0) gm/dl Globulin (2.5-4.0) gm/dl Albumin/Globulin Ratio (0.9-2) Procalcitonin (0-0.5) ng/ml Adenovirus (PCR) (NotDetected) B. pertussis DNA (PCR) (NotDetected) B.parapertussis DNA PCR (NotDetected) C. pneumoniae DNA (PCR) (NotDetected) Coronavirus OC43 (PCR) (NotDetected) Coronavirus HKU1 (PCR) (NotDetected) Coronavirus 229E (PCR) (NotDetected) SARS-CoV-2 (PCR) (NotDetected) Coronavirus NL63 (PCR) (NotDetected) Human Metapneumovir PCR (NotDetected) Influenza Type A (PCR) (NotDetected) Influenza Type B (PCR) (NotDetected) M. pneumoniae (PCR) (NotDetected) Parainfluenza 1 (PCR) (NotDetected) Parainfluenza 2 (PCR) (NotDetected) Parainfluenza 3 (PCR) (NotDetected) Parainfluenza 4 (PCR) (NotDetected) RSV (PCR) (NotDetected) Entero/Rhino (PCR) (NotDetected) 11/01/22 Range/Units 13:31 WBC (4.8-10.8) K/ul RBC (4.20-5.40) M/uL Hgb (12.0-16.0) g/dl Hct (37.0-47.0) % MCV (80.0-100.0) fL MCH (25.0-34.0) pg MCHC (32.0-36.0) g/dL RDW Std Deviation (36.4-46.3) fL RDW Coeff of Holger (11.5-14.5) % Plt Count (130-400) K/uL MPV (9.4-12.4) fL Immature Gran % (Auto) % Neut % (Auto) % Lymph % (Auto) % [place] % (Auto) % Eos % (Auto) % Baso % (Auto) % Neut # (Auto) (1.40-6.50) K/uL Lymph # (Auto) (1.2-3.4) K/uL [place] # (Auto) (0.11-0.59) K/uL Eos # (Auto) (0-0.50) K/uL Baso # (Auto) (0-0.2) K/uL Immature Gran # (Auto) (0.01-0.20) K/uL PT (9.0-12.0) Seconds INR (0.9-1.1) APTT (21.0-31.0) Seconds PTT Ratio VBG pH (7.36-7.41) VBG pCO2 (38-50) mmHg VBG pO2 mmHg VBG HCO3 mmol/L VBG O2 Saturation % VBG Base Excess mEq/L Sodium (136-145) mmol/L Potassium (3.5-5.1) mmol/L Chloride (98-107) mmol/L Carbon Dioxide (21-32) mmol/L Anion Gap (3-11) BUN (6-23) mg/dl Creatinine (0.6-1.2) mg/dl Est Cr Clr Drug Dosing ml/min Est GFR ( Amer) ml/min Est GFR (Non-Af Amer) ml/min BUN/Creatinine Ratio (10-20) Glucose (70-99(Fasting)) mg/dl Lactate (0.4-2.0) mmol/L Calcium (8.6-10.3) mg/dl Magnesium (1.7-2.4) mg/dl Total Bilirubin (0.2-1.0) mg/dl AST (13-39) U/L ALT (7-52) U/L Alkaline Phosphatase (34-104) U/L Troponin I High Sens (0-14) pg/ml Total Protein (6.0-8.3) gm/dl Albumin (3.4-5.0) gm/dl Globulin (2.5-4.0) gm/dl Albumin/Globulin Ratio (0.9-2) Procalcitonin (0-0.5) ng/ml Adenovirus (PCR) DETECTED A* (NotDetected) B. pertussis DNA (PCR) Not Detected (NotDetected) B.parapertussis DNA PCR Not Detected (NotDetected) C. pneumoniae DNA (PCR) Not Detected (NotDetected) Coronavirus OC43 (PCR) Not Detected (NotDetected) Coronavirus HKU1 (PCR) Not Detected (NotDetected) Coronavirus 229E (PCR) Not Detected (NotDetected) SARS-CoV-2 (PCR) Not Detected (NotDetected) Coronavirus NL63 (PCR) Not Detected (NotDetected) Human Metapneumovir PCR Not Detected (NotDetected) Influenza Type A (PCR) Not Detected (NotDetected) Influenza Type B (PCR) Not Detected (NotDetected) M. pneumoniae (PCR) Not Detected (NotDetected) Parainfluenza 1 (PCR) Not Detected (NotDetected) Parainfluenza 2 (PCR) Not Detected (NotDetected) Parainfluenza 3 (PCR) Not Detected (NotDetected) Parainfluenza 4 (PCR) Not Detected (NotDetected) RSV (PCR) Not Detected (NotDetected) Entero/Rhino (PCR) DETECTED A* (NotDetected) Administered Medications Acetaminophen (Acetaminophen 325 Mg Tab) 650 mg PO Q4H PRN PRN Reason: Moderate Pain (Scale 4, 5, 6) Stop: 12/01/22 17:16 Last Admin: 11/02/22 05:01 Dose: 650 mg Documented By: Admin: 11/01/22 20:36 Dose: 650 mg Documented By: ANISH Benzonatate (Benzonatate 100 Mg Capsule) 100 mg PO TID [facility] Stop: 12/01/22 20:59 Last Admin: 11/01/22 20:25 Dose: 100 mg Documented By: ANISH Guaifenesin (Guaifenesin 600 Mg Tabcr) 600 mg PO Q12 [facility] Stop: 12/01/22 20:59 Last Admin: 11/01/22 20:25 Dose: 600 mg Documented By: ANISH Diltiazem HCl 125 mg/ Dextrose 125 mls @ 0 mls/hr IV .Q0M [facility]; Protocol Stop: 12/01/22 17:59 Last Titration: 11/02/22 00:30 Dose: 0 mg/hr, 0 mls/hr Documented By: ANISH Co-signed By: GEORGE Titration: 11/01/22 18:44 Dose: 5 mg/hr, 5 mls/hr Documented By: DAMIAN Co-signed By: ANISH Admin: 11/01/22 18:32 Dose: 5 mg/hr, 5 mls/hr Documented By: DAMIAN Co-signed By: KELLY Lactobacillus Acidophilus (Advanced Probiotic 1250 Mg Capsule) 2 cap PO QDD [facility] Stop: 12/01/22 18:29 Last Admin: 11/01/22 20:25 Dose: 2 cap Documented By: ANISH Levalbuterol HCl (Levalbuterol 1.25 Mg/3 Ml Neb) 1.25 mg NEB Q6R DEAN; Protocol Stop: 12/01/22 18:59 Last Admin: 11/02/22 07:00 Dose: 1.25 mg Documented By: Admin: 11/02/22 01:28 Dose: 1.25 mg Documented By: Admin: 11/01/22 19:16 Dose: 1.25 mg Documented By: ZINA Nicotine (Nicotine 21 Mg/24 Hr Tdsy) 21 mg TD QAM DEAN Stop: 12/01/22 17:44 Last Admin: 11/01/22 18:06 Dose: 21 mg Documented By: DAMIAN Trazodone HCl (Trazodone Hcl 50 Mg Tab) 50 mg PO HS DEAN Stop: 12/01/22 20:59 Last Admin: 11/01/22 20:25 Dose: 50 mg Documented By: ANISH Warfarin Sodium (Warfarin Sod 5 Mg Tab) 5 mg PO [id number] DEAN Stop: 12/01/22 19:59 Last Admin: 11/01/22 20:25 Dose: 5 mg Documented By: ANISH Discontinued Medications Albuterol (Albut/Ipratrop 3mg/0.5mg Neb 3 Ml Vial) 3 ml INH NOW STA Stop: 11/01/22 13:05 Last Admin: 11/01/22 13:44 Dose: 3 ml Documented By: SINAN Diltiazem HCl (Diltiazem Hcl 5 Mg/Ml 5 Ml Vial) 20 mg IV NOW STA Stop: 11/01/22 17:55 Last Admin: 11/01/22 18:11 Dose: 20 mg Documented By: DAMIAN Co-signed By: ZAID Doxycycline Hyclate (Doxycycline Hyclate 100 Mg Cap) 100 mg PO NOW STA Stop: 11/01/22 13:11 Last Admin: 11/01/22 13:37 Dose: 100 mg Documented By: SINAN Sodium Chloride (Nss) 500 mls @ 999 mls/hr IV .Q31M STA Stop: 11/01/22 13:34 Last Admin: 11/01/22 13:47 Dose: Not Given Documented By: HOSPICE SUPERINTENDENT Magnesium Sulfate/Dextrose (Magnesium Sulfate / D5w) 1 gm in 100 mls @ 100 m ls/hr IV Q1H DEAN Stop: 11/01/22 15:14 Last Infusion: 11/01/22 16:50 Dose: 0 mls/hr Documented By: HOSPICE SUPERINTENDENT Admin: 11/01/22 15:42 Dose: 100 mls/hr Documented By: HOSPICE SUPERINTENDENT Infusion: 11/01/22 15:01 Dose: 0 mls/hr Documented By: HOSPICE SUPERINTENDENT Admin: 11/01/22 13:37 Dose: 100 mls/hr Documented By: HOSPICE SUPERINTENDENT Ceftriaxone Sodium (Rocephin) 2,000 mg in 70 mls @ 140 mls/hr IV NOW STA Stop: 11/01/22 13:39 Last Infusion: 11/01/22 15:01 Dose: 0 mls/hr Documented By: HOSPICE SUPERINTENDENT Admin: 11/01/22 14:04 Dose: 140 mls/hr Documented By: HOSPICE SUPERINTENDENT Sodium Chloride (Nss 1000ml) 1,000 mls @ 999 mls/hr IV .Q1H1M ONE Stop: 11/01/22 14:12 Last Infusion: 11/01/22 15:01 Dose: 0 mls/hr Documented By: HOSPICE SUPERINTENDENT Admin: 11/01/22 13:37 Dose: 999 mls/hr Documented By: HOSPICE SUPERINTENDENT Levalbuterol HCl (Levalbuterol 1.25 Mg/3 Ml Neb) 1.25 mg NEB NOW STA; Protocol Stop: 11/01/22 14:34 Last Admin: 11/01/22 15:42 Dose: 1.25 mg Documented By: HOSPICE SUPERINTENDENT Methylprednisolone (Methylprednisolone 125 Mg/2 Ml Vial) 125 mg IV NOW STA Stop: 11/01/22 13:05 Last Admin: 11/01/22 13:39 Dose: Not Given Documented By: HOSPICE SUPERINTENDENT Metoprolol Tartrate (Metoprolol Tartrate 1 Mg/Ml Vial) 2.5 mg IV NOW STA Stop: 11/01/22 14:34 Last Admin: 11/01/22 15:42 Dose: 2.5 mg Documented By: HOSPICE SUPERINTENDENT Imaging Data Radiologist's Impression: Chest X-Ray 11/01/22 13:04 XR chest 1V portable HISTORY: Dyspnea COMPARISON: None. FINDINGS: The lungs are clear. Cardiac silhouette is normal in size. No pleural effusions. No pneumothorax. IMPRESSION: No acute process. ACT 112: Negative or not required by law. Electronically signed by: Garret Jung M.D. 11/01/2022 2:04 PM Discharge Plan Visit Data Chief Complaint: Shortness of Breath/Dyspnea Stated Complaint: DIFFICULT BREATHING, COUGH, COLD SX ED Provider: Keny Merino Discharge Problem: COPD (chronic obstructive pulmonary disease), Atrial flutter with rapid ventricular response, Acute dehydration, Encounter for smoking cessation counseling Patient Disposition: Admitted As Inpatient Discharge Instructions Interventions: ED Discharge Assessment Last Done: 11/01/22 16:53
[2022-11-01 14:03] LABS: INR 2.3 (0.9-1.1); Partial Thromboplastin Ratio 1.4; Partial Thromboplastin Time 39.3 Seconds (21.0-31.0); Prothrombin Time 23.5 Seconds (9.0-12.0)
--- NOTE | 2022-11-01 14:06 | XRay Report ---
XR chest 1V portable HISTORY: Dyspnea COMPARISON: None. FINDINGS: The lungs are clear. Cardiac silhouette is normal in size. No pleural effusions. No pneumot horax. IMPRESSION: No acute process. ACT 112: Negative or not required by law. Electronically signed by: Garret Jung M.D. 11/01/2022 2:04 PM
[2022-11-01] MEDS ORDERED: METOPROLOL TARTRATE 1 MG/ML VIAL IV STA (14:33)
[2022-11-01] MEDS ORDERED: LEVALBUTEROL 1.25 MG/3 ML NEB NEB STA (14:33)
--- NOTE | 2022-11-01 14:45 | History & Physical Report ---
Date of Service November 01, 2022 Assessment & Plan (1) COPD (chronic obstructive pulmonary disease): (2) Bronchitis: Plan: - Admit to med surg with tele - Sputum culture, rony ruvalcaba QID and Q2H prn, esperanza garces -Patient is not requiring supplemental O2 -Respiratory viral panel is positive for adenovirus and enterovirus/rhinovirus likely exacerbating COPD - given solumedrol 125 IV in the ER, will continue with 40 mg IV Q12H - pt notes hx of allergy to prednisone po but has tolerated this thus far. - WBC at time of admission = 9.61 - BCx x 2, follow - Afebrile here - Lactic acid = 1.9, Procalcitonin less than 0.05 - CXR reviewed as above - Started antibiotic therapy with IV ceftriaxone and doxycycline for concern for underlying pneumonia, consider CT of the chest if no improvement in symptoms tomorrow - will hold on further antibiotics - Smoking cessation encouraged at bedside - ordered nicotine patch (3) Paroxysmal A-fib: (4) Anticoagulated on Coumadin: Plan: - Afib RVR at time of admission - HR up in the 140s -- giving dose of lopressor IV now, may require cardizem gtt if no improvement - Continue coumadin with daily INRs, currently therapeutic with INR at 2.3 -Continue home regimen of 5 mg daily except on Tuesdays and where she receives 2.5 mg (5) Hypertension: Plan: -Continue amlodipine, baby aspirin, metoprolol succinate 50 mg every morning (6) Ambulatory dysfunction: Plan: History of recurrent hip dislocation, planning surgery in the future DVT PPx:- teds, scds, Coumadin CODE: Full code Dispo: From home, likely to remain in the hospital x 1-2 days A total of 77 minutes were spent with greater than 50% of that time face to face with the patient, personally reviewing all current laboratories, imaging studies, past medication reconciliation, outpatient chart review, and discussion with specialists to collaborate care for the patient with attending. Please see attending documentation for corrections and/or additions. History of Present Illness Chief Complaint: Shortness of breath Primary Care Provider: Lv Choi MD This is a 72-year-old female with PMHx of paroxysmal A-fib on Coumadin, HTN, HLD, COPD, asthma, active tobacco use disorder smoking 1 pack/day, prediabetes, ambulatory dysfunction with recurrent hip dislocation, anxiety who presents to the hospital with worsening shortness of breath, productive cough and dyspnea on exertion. Pt was able to smoke 2 cigarettes today, states at least 50 year history. Pt reports her symptoms started about last Thursday of Thursday and started with runny nose, sore throat, cough with productive mucous which initially was clear and now its yellow, denies any fever, but is chilled. She has taken occasional Tylenol earlier this week, but does not have fever today. She has been tolerating po intake but has some nausea, no vomiting. Pt reports chronic diarrhea from diverticulitis, going on at least two years, and has loose bowel movements every times she urinates. Pt is having trouble sleeping, and denies orthopnea. This has been going on for many years and takes trazodone at bedtime. Patient denies any cardiac symptoms of palpitation or flutter even when she is in A-fib. She does admit to having some lightheadedness and dizziness today which is much worse whenever she goes into a coughing fit. She reports currently undergoing outpatient surgical clearance for a right hip replacement as it has recurrently gone out of place. She has fallen last January and July but at that time was not on coumadin, and caused it to go out each time. No other recent falls. She took all her normal medications, and last took coumadin yesterday. She alternates Coumadin dosing, her home regimen is 5 mg daily except for on Tuesdays and when she takes 2.5 mg. Allergies Allergy/AdvReac Type Severity Reaction Status Date / Time iodine Allergy Intermediate Diffuse Verified 11/01/22 15:05 blistering latex Allergy Intermediate Blistering Verified 11/01/22 15:05 meperidine Allergy Intermediate "Shakes" Verified 11/01/22 15:05 prednisone Allergy Intermediate "Shakes" Verified 11/01/22 15:05 Yhuyyll-LOL-VaP Reductase Allergy Intermediate "Shakes" Verified 11/01/22 15:05 Inhibitor [Lpfzpqa-Ukb-Prp Reductase Inhibitor] oxycodone AdvReac Intermediate HALLUCINATI Verified 11/01/22 15:05 ONS/CONFUSI ON Home Medications Medication Instructions Recorded Confirmed Type albuterol sulfate 2.5 mg/3 mL 2.5 mg inhalation Q4H PRN 08/25/21 11/01/22 History (0.083 %) solution for nebulization Shortness Of Breath Or Wheezing albuterol sulfate 90 mcg/actuation 2 puff inhalation 6XD PRN 08/25/21 11/01/22 History aerosol inhaler (ProAir HFA) Shortness Of Breath Or Wheezing amlodipine 2.5 mg tablet 2.5 mg PO QAM 08/25/21 11/01/22 History hydrochlorothiazide 25 mg tablet 25 mg PO QAM 08/25/21 11/01/22 History trazodone 50 mg tablet 50 mg PO HS 08/25/21 11/01/22 History acetaminophen 650 mg 1,300 mg PO DAILY PRN Pain 01/21/22 11/01/22 History tablet,extended release lactobacillus combination no.4 3 3,000 mmu cells PO QPM 01/21/22 11/01/22 History billion cell capsule (Probiotic) magnesium 250 mg tablet 250 mg PO DAILY 04/13/22 11/01/22 History metoprolol succinate 50 mg 50 mg PO QAM 11/01/22 11/01/22 History tablet,extended release 24 hr multivitamin-ferrous 1 tab PO QAM 11/01/22 11/01/22 History fumarate-folic acid 18 mg-400 mcg tablet warfarin 5 mg tablet 5 mg PO QPM 11/01/22 11/01/22 History Past Med/Surg History Medical History Chronic back pain Back to LLE COPD (chronic obstructive pulmonary disease) History of COVID-19 Dx 02/2021 > symptoms at time: loss of taste/smell, resolved Hypertension Lumbosacral radiculopathy at L4 Migraine Hx Tremor Hands, head. No definite diagnosis. Surgical History Breast cyst Removal Dislocation, hip closed Relocation under anesthesia (07/2021) H/O breast biopsy Benign History of bladder surgery History of cholecystectomy History of colonoscopy History of esophagogastroduodenoscopy (EGD) Nausea and vomiting after administration of anesthetic agent S/P hip replacement Right Family History Brother Family history of diabetes mellitus Family hx of colon cancer Brother Family history of diabetes mellitus Brother Family history of diabetes mellitus Daughter Family history of diabetes mellitus Aunt Family history of diabetes mellitus Aunt Family history of diabetes mellitus Aunt Family history of diabetes mellitus Social History Smoking Status: Current every day smoker Tobacco Type: Cigarettes Cigarettes Per Day: 35 cigs/day; Second Hand Exposure: Yes; Do You Dip or Chew Tobacco: No; Hx Alcohol Use: No Hx Substance Use: Yes (tobacco) Preferred Language: Scottish Communication Ability: Effective Management Information Systems Director Required: No Beliefs That Will Affect Care: None Current Living Situation: Alone current occupational status: retired Feels Safe at Home: Yes Assistive Devices: Brace/Splint/Immobilizer, Cane, Glasses and Walker Review of Systems Review of Systems: Constitutional: No fever or sweats , + chills Eyes: No diplopia, no worsening or blurred vision ENT: normal hearing, no trouble swallowing Respiratory: As per HPI, + cough, sputum, dyspnea on exertion Cardiovascular: No chest pain, tightness or palpitations Abdomen: No pain, +nausea,no vomiting, +diarrhea chronically, no constipation Musculoskeletal: No joint pain, calf pain, swelling Neurologic: + Generalized weakness, no numbness/tingling, or balance problems Psychiatric: No anxiety or depression Skin: No rash or itch Physical Exam Physical Exam: General: awake, alert, no apparent distress, appears acutely ill Head: Normocephalic, atraumatic ENT: PERRL, EOMI, no pharyngeal exudate, mucous membranes moist Chest: + Coarse cough, diffuse wheezing throughout, more so on the right side, + Rales, no crackles, requiring 2 LPM NC, does not wear supplemental O2 at baseline Cardiac: Irregularly irregular, heart rate in the 110s while sitting, during coughing fit peaks to the 140s, no murmur, no JVD, normal peripheral pulses, good capillary refill Abdominal: NABS x 4 quadrants, soft, nondistended, nontender to palpation, no rebound or guarding Extremities: Normal inspection, no peripheral edema or erythema, calfs nontender to palpation Psych: Normal mood and affect Neuro: AAO x 3, strength intact bilaterally and rated 5/5, no motor deficits, speech is clear, no peripheral sensory deficits Results & Data Results & Data Vital Signs (Past 12 Hours) Vital Signs Temp Pulse Pulse Resp BP BP Pulse Ox 11/01/22 13:03 145 H 24 96 11/01/22 13:09 154 H 11/01/22 13:10 117 H 14 95 11/01/22 13:00 11/01/22 13:00 128 H 20 136/110 H 98 11/01/22 12:41 36.7 C 81 22 103/75 93 O2 Del Method O2 Flow Rate 11/01/22 13:03 11/01/22 13:09 11/01/22 13:10 Room Air 11/01/22 13:00 Room Air 95 11/01/22 13:00 Room Air 11/01/22 12:41 Room Air Laboratory Results 11/01/22 13:36 Aerobic Blood Culture - Pending Blood Anaerobic Blood Culture - Pending 11/01/22 13:13 Aerobic Blood Culture - Pending Blood Anaerobic Blood Culture - Pending 11/01/22 11/01/22 11/01/22 13:31 13:13 13:13 WBC RBC Hgb Hct MCV MCH MCHC RDW Std Deviation RDW Coeff of Holger Plt Count MPV Immature Gran % (Auto) Neut % (Auto) Lymph % (Auto) [place] % (Auto) Eos % (Auto) Baso % (Auto) Neut # (Auto) Lymph # (Auto) [place] # (Auto) Eos # (Auto) Baso # (Auto) Immature Gran # (Auto) PT INR APTT PTT Ratio VBG pH 7.41 VBG pCO2 49 VBG pO2 23 VBG HCO3 31 VBG O2 Saturation < 60.0 VBG Base Excess 5.3 Sodium Potassium Chloride Carbon Dioxide Anion Gap BUN Creatinine Est Cr Clr Drug Dosing Est GFR ( Amer) Est GFR (Non-Af Amer) BUN/Creatinine Ratio Glucose Lactate 1.9 Calcium Magnesium Total Bilirubin AST ALT Alkaline Phosphatase Troponin I High Sens Total Protein Albumin Globulin Albumin/Globulin Ratio Procalcitonin Adenovirus (PCR) DETECTED A* B. pertussis DNA (PCR) Not Detected B.parapertussis DNA PCR Not Detected C. pneumoniae DNA (PCR) Not Detected Coronavirus OC43 (PCR) Not Detected Coronavirus HKU1 (PCR) Not Detected Coronavirus 229E (PCR) Not Detected SARS-CoV-2 (PCR) Not Detected Coronavirus NL63 (PCR) Not Detected Human Metapneumovir PCR Not Detected Influenza Type A (PCR) Not Detected Influenza Type B (PCR) Not Detected M. pneumoniae (PCR) Not Detected Parainfluenza 1 (PCR) Not Detected Parainfluenza 2 (PCR) Not Detected Parainfluenza 3 (PCR) Not Detected Parainfluenza 4 (PCR) Not Detected RSV (PCR) Not Detected Entero/Rhino (PCR) DETECTED A* 11/01/22 11/01/22 11/01/22 13:13 13:13 13:13 WBC RBC Hgb Hct MCV MCH MCHC RDW Std Deviation RDW Coeff of Holger Plt Count MPV Immature Gran % (Auto) Neut % (Auto) Lymph % (Auto) [place] % (Auto) Eos % (Auto) Baso % (Auto) Neut # (Auto) Lymph # (Auto) [place] # (Auto) Eos # (Auto) Baso # (Auto) Immature Gran # (Auto) PT 23.5 H INR 2.3 H APTT 39.3 H PTT Ratio 1.4 VBG pH VBG pCO2 VBG pO2 VBG HCO3 VBG O2 Saturation VBG Base Excess Sodium 136 Potassium 4.3 Chloride 103 Carbon Dioxide 25 Anion Gap 8 BUN 23 Creatinine 1.04 Est Cr Clr Drug Dosing 54.5 Est GFR ( Amer) 62.2 Est GFR (Non-Af Amer) 53.6 BUN/Creatinine Ratio 22.1 H Glucose 116 H Lactate Calcium 9.5 Magnesium 1.8 Total Bilirubin 0.5 AST 27 ALT 27 Alkaline Phosphatase 75 Troponin I High Sens 5.9 Total Protein 8.3 Albumin 4.1 Globulin 4.2 H Albumin/Globulin Ratio 1.0 Procalcitonin < 0.05 Adenovirus (PCR) B. pertussis DNA (PCR) B.parapertussis DNA PCR C. pneumoniae DNA (PCR) Coronavirus OC43 (PCR) Coronavirus HKU1 (PCR) Coronavirus 229E (PCR) SARS-CoV-2 (PCR) Coronavirus NL63 (PCR) Human Metapneumovir PCR Influenza Type A (PCR) Influenza Type B (PCR) M. pneumoniae (PCR) Parainfluenza 1 (PCR) Parainfluenza 2 (PCR) Parainfluenza 3 (PCR) Parainfluenza 4 (PCR) RSV (PCR) Entero/Rhino (PCR) 11/01/22 13:13 WBC 9.61 RBC 5.80 H Hgb 18.5 H Hct 52.3 H MCV 90.2 MCH 31.9 MCHC 35.4 RDW Std Deviation 46.6 H RDW Coeff of Holger 14.0 Plt Count 254 MPV 9.9 Immature Gran % (Auto) 0.2 Neut % (Auto) 65.9 Lymph % (Auto) 25.2 [place] % (Auto) 7.0 Eos % (Auto) 1.2 Baso % (Auto) 0.5 Neut # (Auto) 6.33 Lymph # (Auto) 2.42 [place] # (Auto) 0.67 H Eos # (Auto) 0.12 Baso # (Auto) 0.05 Immature Gran # (Auto) 0.02 PT INR APTT PTT Ratio VBG pH VBG pCO2 VBG pO2 VBG HCO3 VBG O2 Saturation VBG Base Excess Sodium Potassium Chloride Carbon Dioxide Anion Gap BUN Creatinine Est Cr Clr Drug Dosing Est GFR ( Amer) Est GFR (Non-Af Amer) BUN/Creatinine Ratio Glucose Lactate Calcium Magnesium Total Bilirubin AST ALT Alkaline Phosphatase Troponin I High Sens Total Protein Albumin Globulin Albumin/Globulin Ratio Procalcitonin Adenovirus (PCR) B. pertussis DNA (PCR) B.parapertussis DNA PCR C. pneumoniae DNA (PCR) Coronavirus OC43 (PCR) Coronavirus HKU1 (PCR) Coronavirus 229E (PCR) SARS-CoV-2 (PCR) Coronavirus NL63 (PCR) Human Metapneumovir PCR Influenza Type A (PCR) Influenza Type B (PCR) M. pneumoniae (PCR) Parainfluenza 1 (PCR) Parainfluenza 2 (PCR) Parainfluenza 3 (PCR) Parainfluenza 4 (PCR) RSV (PCR) Entero/Rhino (PCR) Diagnostic Findings Chest X-Ray 11/01/22 13:04 XR chest 1V portable HISTORY: Dyspnea COMPARISON: None. FINDINGS: The lungs are clear. Cardiac silhouette is normal in size. No pleural effusions. No pneumothorax. IMPRESSION: No acute process. ACT 112: Negative or not required by law. Electronically signed by: Garret Jung M.D. 11/01/2022 2:04 PM ECG Additional Comments: Reviewed, appears to be in a flutter/A-fib, heart rate in the 110s Code Status & VTE Plan Code Status Full code-discussed with the patient at bedside Supervising Physician Co-Signing Physician Notes Pt seen and examined by myself, Maria Guadalupe Johnson MD on the day of service. Care was coordinated with Marlyn Galvin PA-C. Please refer to her note for additional information. Pt is 72yoF with a PMHx significant for COPD and a fib, presenting with SOB. Respiratory panel testing positive for rhinovirus/enterovirus, likely exacerbating her COPD. Chest xray with no acute disease, vitals stable, has not had an oxygen requirement. O2 supplementation as needed, breathing treatments, pulmonary toilet, smoking cessation Continue home metoprolol, warfarin for a fib, consider additional lopressor/cardizem treatments as needed. Otherwise as above
[2022-11-01 14:46] LABS: Bordetella parapertussis PCR Not Detected (NotDetected); Bordetella pertussis PCR Not Detected (NotDetected); Chlamydia pneumoniae PCR Not Detected (NotDetected); Coronavirus 229E PCR Not Detected (NotDetected); Coronavirus CoV-2 (COVID19)PCR Not Detected (NotDetected); Coronavirus HKU1 PCR Not Detected (NotDetected); Coronavirus NL63 PCR Not Detected (NotDetected); Coronavirus OC43PCR Not Detected (NotDetected); Human Metapneumovirus PCR Not Detected (NotDetected); Influenza A PCR Not Detected (NotDetected); Influenza B PCR Not Detected (NotDetected); Mycoplasma pneumoniae PCR Not Detected (NotDetected); Parainfluenza Virus 1 PCR Not Detected (NotDetected); Parainfluenza Virus 2 PCR Not Detected (NotDetected); Parainfluenza Virus 3 PCR Not Detected (NotDetected); Parainfluenza Virus 4 PCR Not Detected (NotDetected); Respiratory Syncytial VirusPCR Not Detected (NotDetected)
[2022-11-01 14:49] LABS: Adenovirus PCR DETECTED (NotDetected); Rhinovirus/Enterovirus PCR DETECTED (NotDetected)
--- NOTE | 2022-11-01 16:22 | Electrocardiogram Report ---
Test Reason : Blood Pressure : / mmHG Vent. Rate : 110 BPM Atrial Rate : 359 BPM P-R Int : 000 ms QRS Dur : 082 ms QT Int : 334 ms P-R-T Axes : 094 051 046 degrees QTc Int : 452 ms Atrial flutter with variable A-V block with premature ventricular or aberrantly conducted complexes Low voltage QRS Abnormal ECG When compared with ECG of 23-JAN-2022 12:18, Atrial flutter has replaced Sinus rhythm Confirmed by Medhat Srinivasan ([id number]) on 11/01/2022 4:22:37 PM Referred By: REFERRED SELF Confirmed By:Milan Srinivasan
[2022-11-01] MEDS ORDERED: ALBUTEROL HFA 8 GM INHALER INH PRN (17:00)
[2022-11-01] MEDS ORDERED: ONDANSETRON INJ 2 MG/ML 2 ML VIAL IV PRN (17:17)
[2022-11-01] MEDS ORDERED: ALBUTEROL 0.083% NEBU SOLN 3 ML VIAL INH PRN (17:17)
[2022-11-01] MEDS ORDERED: STAT IV Infusion **Titration per Protocol STA (17:54)
[2022-11-01] MEDS ORDERED: dilTIAZem HCl 5 MG/ML 5 ML VIAL IV STA (17:54)
[2022-11-01] MEDS ORDERED: dilTIAZem HCL 125 MG in DEXTROSE 5% 100 ML IV SCH (18:00)
[2022-11-01] MEDS: NICOTINE 21 MG/24 HR TDSY TD SCH (18:06)
[2022-11-01] MEDS ORDERED: LEVALBUTEROL 1.25 MG/3 ML NEB NEB PRN (18:30)
[2022-11-01] MEDS: LEVALBUTEROL 1.25 MG/3 ML NEB NEB SCH (19:16)
[2022-11-01] MEDS: WARFARIN SOD 5 MG TAB PO SCH (20:25)
[2022-11-01] MEDS: guaiFENesin 600 MG TABCR PO SCH (20:25)
[2022-11-01] MEDS: BENZONATATE 100 MG CAPSULE PO SCH (20:25)
[2022-11-01] MEDS: ADVANCED PROBIOTIC 1250 MG CAPSULE PO SCH (20:25)
[2022-11-01] MEDS: traZODone HCL 50 MG TAB PO SCH (20:25)
[2022-11-01] MEDS: ACETAMINOPHEN 325 MG TAB PO PRN (20:36)
[2022-11-02] MEDS: LEVALBUTEROL 1.25 MG/3 ML NEB NEB SCH ×4 (01:28→19:54)
[2022-11-02] MEDS: ACETAMINOPHEN 325 MG TAB PO PRN ×2 (05:01→20:28)
[2022-11-02 06:51] LABS: Hematocrit (blood only) 48.9 % (37.0-47.0); Hemoglobin 16.8 g/dl (12.0-16.0); Mean Corpuscular Hemoglobin 31.3 pg (25.0-34.0); Mean Corpuscular Hgb Conc 34.4 g/dL (32.0-36.0); Mean Corpuscular Volume 91.1 fL (80.0-100.0); Mean Platelet Volume 10.2 fL (9.4-12.4); Platelet Count 218 K/uL (130-400); RDW Coefficient of Variation 13.8 % (11.5-14.5); RDW Standard Deviation 46.5 fL (36.4-46.3); Red Blood Count 5.37 M/uL (4.20-5.40); White Blood Count 9.24 K/ul (4.8-10.8)
[2022-11-02 07:02] LABS: Calcium 9.5 mg/dl (8.6-10.3); Potassium 3.9 mmol/L (3.5-5.1)
[2022-11-02 07:08] LABS: BUN Creatinine Ratio 28.6 (10-20); Creatinine Clr Calc Pharmacy 61.3 ml/min; Est GFR (African American) 73.1 ml/min
--- NOTE | 2022-11-02 07:10 | Electrocardiogram Report ---
Test Reason : Blood Pressure : / mmHG Vent. Rate : 066 BPM Atrial Rate : 066 BPM P-R Int : 152 ms QRS Dur : 082 ms QT Int : 420 ms P-R-T Axes : 057 047 045 degrees QTc Int : 440 ms Normal sinus rhythm Low voltage QRS Borderline ECG When compared with ECG of 01-NOV-2022 13:24, Sinus rhythm has replaced Atrial flutter Vent. rate has decreased BY 44 BPM Confirmed by Medhat Srinivasan ([id number]) on 11/02/2022 7:10:16 AM Referred By: REFERRED SELF Confirmed By:Milan Srinivasan
[2022-11-02 07:28] LABS: INR 2.2 (0.9-1.1); Prothrombin Time 22.7 Seconds (9.0-12.0)
[2022-11-02] MEDS: MAGNESIUM OXIDE 400 MG TAB PO SCH (08:15)
[2022-11-02] MEDS: amLODIPine BESYLATE 5 MG TAB PO SCH (08:15)
[2022-11-02] MEDS: guaiFENesin 600 MG TABCR PO SCH ×2 (08:15→20:29)
[2022-11-02] MEDS: METOPROLOL SUCC 50MG EXT REL TAB PO SCH (08:15)
[2022-11-02] MEDS: BENZONATATE 100 MG CAPSULE PO SCH ×3 (08:16→20:29)
[2022-11-02] MEDS: methylPREDNISolone 40 MG in SYRINGE 0 ML IV SCH ×2 (08:16→20:29)
[2022-11-02] MEDS: hydroCHLOROthiazide 25 MG TAB PO SCH (08:16)
[2022-11-02] MEDS: MULTIVITAMIN TAB PO SCH (08:16)
[2022-11-02] MEDS: NICOTINE 21 MG/24 HR TDSY TD SCH (08:16)
[2022-11-02] MEDS ORDERED: NICOTINE 21 MG/24 HR TDSY TD SCH (09:00)
[2022-11-02] MEDS: guaiFENesin/DEXTROM SYRUP 100MG/10MG 5ML UDC PO PRN (13:10)
--- NOTE | 2022-11-02 14:33 | Hospitalist Progress Note ---
Date of Service November 02, 2022 Assessment & Plan (1) Bronchitis: Plan (1) exacerbation of COPD (chronic obstructive pulmonary disease): (2) Bronchitis: ( ) Viral URI: -Patient came in with worsening shortness of breath, cough and STACY -Respiratory viral panel is positive for adenovirus and enterovirus/rhinovirus likely exacerbating COPD - given solumedrol 125 IV in the ER, will continue with 40 mg IV Q12H - pt notes hx of allergy to prednisone po but has tolerated this thus far. Will transition to p.o. Solu-Medrol tomorrow. -Follow-up admitting blood culture. Admitting CXR w/ no acute findings. -Patient afebrile, reports improving cough, with light yellow sputum. -Continue with Solu-Medrol, will add azithromycin. - Smoking cessation encouraged at bedside - c/w nicotine patch. Pt reports no intention on quitting for now, but will try to cut it down. (3) Paroxysmal A-fib: (4) Anticoagulated on Coumadin: - Afib RVR at time of admission - HR up in the 140s -- improved w/ cardizem drip. - Continue coumadin with daily INRs, currently therapeutic - Continue home regimen of 5 mg daily except on Tuesdays and where she receives 2.5 mg (5) Hypertension: Continue amlodipine, baby aspirin, metoprolol succinate 50 mg every morning (6) Ambulatory dysfunction: History of recurrent hip dislocation, planning surgery in the future DVT PPx:- teds, scds, Coumadin CODE: Full code Dispo: From home, pt/ot cm to assist w/ dc plan. Admission and Anticipated Discharge Date Admission Date: November 01, 2022 Subjective Patient seen and examined at bedside as a follow-up of acute bronchitis, COPD exacerbation, viral URI. Patient was sitting up in chair, on room air, NAD, coughing, reports likely sputum, reports cough getting minimally better, denies headache or dizziness or chest pain or palpitation, reports sore throat getting better, reports eating okay and moving bowels okay, reports not being able to sleep overnight. Physical Exam Physical Exam: GENERAL: Alert and oriented x3. NAD, on RA. HEENT: No pallor, no icterus. Pupils equal, round and reactive to light. Oral mucosa moist. NECK: No JVD, no neck masses. HEART: S1 and S2 heard. irregular rate and rhythm. No murmur, no gallop. RESPIRATORY SYSTEM: Normal AP diameter. No accessory muscle use. + wheezing, crackles b/b. ABDOMEN: Soft, bowel sounds present, nontender, no distention. CENTRAL NERVOUS SYSTEM: No facial droop. Speech is clear. Obeys simple commands. Moves extremities. EXTREMITIES: No edema, no erythema seen. Results & Data Results & Data Vital Signs (Past 12 Hours) Vital Signs Temp Pulse Pulse Resp BP BP Pulse Ox 11/02/22 13:23 67 15 89 L 11/02/22 11:22 36.4 C L 78 20 126/80 144/82 H 90 11/02/22 09:00 66 11/02/22 08:00 36.6 C 78 22 119/76 93 11/02/22 07:00 66 18 95 11/02/22 02:52 36.4 C L 63 22 114/69 93 O2 Del Method FiO2 11/02/22 13:23 Room Air 11/02/22 11:22 Room Air 11/02/22 09:00 11/02/22 08:00 Room Air 11/02/22 07:00 Room Air 11/02/22 02:52 Room Air
[2022-11-02] MEDS ORDERED: AZITHROMYCIN 250 MG TAB PO ONE (14:46)
[2022-11-02] MEDS: WARFARIN SOD 5 MG TAB PO SCH (17:03)
[2022-11-02] MEDS: ADVANCED PROBIOTIC 1250 MG CAPSULE PO SCH (17:03)
[2022-11-02] MEDS: traZODone HCL 50 MG TAB PO SCH (20:30)
[2022-11-03] MEDS: LEVALBUTEROL 1.25 MG/3 ML NEB NEB SCH ×2 (01:27→07:15)
[2022-11-03 07:35] LABS: Hematocrit (blood only) 52.1 % (37.0-47.0); Hemoglobin 17.8 g/dl (12.0-16.0); Mean Corpuscular Hemoglobin 31.1 pg (25.0-34.0); Mean Corpuscular Hgb Conc 34.2 g/dL (32.0-36.0); Mean Corpuscular Volume 91.1 fL (80.0-100.0); Mean Platelet Volume 9.6 fL (9.4-12.4); Platelet Count 273 K/uL (130-400); RDW Coefficient of Variation 13.8 % (11.5-14.5); RDW Standard Deviation 46.5 fL (36.4-46.3); Red Blood Count 5.72 M/uL (4.20-5.40); White Blood Count 16.04 K/ul (4.8-10.8)
[2022-11-03 07:49] LABS: INR 2.8 (0.9-1.1)
[2022-11-03] MEDS: methylPREDNISolone 40 MG in SYRINGE 0 ML IV SCH (07:58)
[2022-11-03] MEDS: MULTIVITAMIN TAB PO SCH (08:03)
[2022-11-03] MEDS: amLODIPine BESYLATE 5 MG TAB PO SCH (08:03)
[2022-11-03] MEDS: guaiFENesin 600 MG TABCR PO SCH (08:04)
[2022-11-03] MEDS: METOPROLOL SUCC 50MG EXT REL TAB PO SCH (08:04)
[2022-11-03] MEDS: BENZONATATE 100 MG CAPSULE PO SCH (08:04)
[2022-11-03] MEDS: hydroCHLOROthiazide 25 MG TAB PO SCH (08:04)
[2022-11-03] MEDS: NICOTINE 21 MG/24 HR TDSY TD SCH (08:04)
[2022-11-03] MEDS: MAGNESIUM OXIDE 400 MG TAB PO SCH (08:04)
[2022-11-03] MEDS: guaiFENesin/DEXTROM SYRUP 100MG/10MG 5ML UDC PO PRN (08:06)
[2022-11-03 08:09] LABS: Magnesium 1.9 mg/dl (1.7-2.4); Potassium 3.9 mmol/L (3.5-5.1)
[2022-11-03 08:15] LABS: BUN Creatinine Ratio 25.9 (10-20); Creatinine Clr Calc Pharmacy 65.4 ml/min; Est GFR (African American) 79.3 ml/min; Est GFR (Non-African American) 68.5 ml/min; Phosphorus 3.7 mg/dl (2.5-4.9)
[2022-11-03] MEDS ORDERED: AZITHROMYCIN 250 MG TAB PO SCH (11:00)
--- NOTE | 2022-11-03 12:40 | Discharge Summary ---
Date of Service November 03, 2022 Admission HPI Per Admitting Provider This is a 72-year-old female with PMHx of paroxysmal A-fib on Coumadin, HTN, HLD, COPD, asthma, active tobacco use disorder smoking 1 pack/day, prediabetes, ambulatory dysfunction with recurrent hip dislocation, anxiety who presents to the hospital with worsening shortness of breath, productive cough and dyspnea on exertion. Pt was able to smoke 2 cigarettes today, states at least 50 year history. Pt reports her symptoms started about last Thursday of Thursday and started with runny nose, sore throat, cough with productive mucous which initially was clear and now its yellow, denies any fever, but is chilled. She has taken occasional Tylenol earlier this week, but does not have fever today. She has been tolerating po intake but has some nausea, no vomiting. Pt reports chronic diarrhea from diverticulitis, going on at least two years, and has loose bowel movements every times she urinates. Pt is having trouble sleeping, and denies orthopnea. This has been going on for many years and takes trazodone at be dtime. Patient denies any cardiac symptoms of palpitation or flutter even when she is in A-fib. She does admit to having some lightheadedness and dizziness today which is much worse whenever she goes into a coughing fit. She reports currently undergoing outpatient surgical clearance for a right hip replacement as it has recurrently gone out of place. She has fallen last January and July but at that time was not on coumadin, and caused it to go out each time. No other recent falls. She took all her normal medications, and last took coumadin yesterday. She alternates Coumadin dosing, her home regimen is 5 mg daily except for on Tuesdays and when she takes 2.5 mg. Admission Exam Per Admitting Provider General: awake, alert, no apparent distress, appears acutely ill Head: Normocephalic, atraumatic ENT: PERRL, EOMI, no pharyngeal exudate, mucous membranes moist Chest: + Coarse cough, diffuse wheezing throughout, more so on the right side, + Rales, no crackles, requiring 2 LPM NC, does not wear supplemental O2 at baseline Cardiac: Irregularly irregular, heart rate in the 110s while sitting, during coughing fit peaks to the 140s, no murmur, no JVD, normal peripheral pulses, good capillary refill Abdominal: NABS x 4 quadrants, soft, nondistended, nontender to palpation, no rebound or guarding Extremities: Normal inspection, no peripheral edema or erythema, calfs nontender to palpation Psych: Normal mood and affect Neuro: AAO x 3, strength intact bilaterally and rated 5/5, no motor deficits, speech is clear, no peripheral sensory deficits Principal Diagnosis Exacerbation of COPD Bronchitis Viral URI Paroxysmal A-fib, history of Discharge Exam GENERAL: Alert and oriented x3. NAD, on RA. HEENT: No pallor, no icterus. Pupils equal, round and reactive to light. Oral mucosa moist. NECK: No JVD, no neck masses. HEART: S1 and S2 heard. irregular rate and rhythm. No murmur, no gallop. RESPIRATORY SYSTEM: Normal AP diameter. No accessory muscle use. minimal b/b ronchi, crackles b/b - improving significantly. ABDOMEN: Soft, bowel sounds present, nontender, no distention. CENTRAL NERVOUS SYSTEM: No facial droop. Speech is clear. Obeys simple commands. Moves extremities. EXTREMITIES: No edema, no erythema seen. Discharge Data Allergies Allergy/AdvReac Type Severity Reaction Status Date / Time iodine Allergy Intermediate Diffuse Verified 11/01/22 15:05 blistering latex Allergy Intermediate Blistering Verified 11/01/22 15:05 meperidine Allergy Intermediate "Shakes" Verified 11/01/22 15:05 prednisone Allergy Intermediate "Shakes" Verified 11/01/22 15:05 [id number] Reductase Allergy Intermediate "Shakes" Verified 11/01/22 15:05 Inhibitor [Hutoski-Yiu-Xyb Reductase Inhibitor] oxycodone AdvReac Intermediate HALLUCINATI Verified 11/01/22 15:05 ONS/CONFUSI ON Consultations 11/01/22 14:34 ED Decision to Admit Stat Hospital Course (1) Bronchitis: Plan (1) exacerbation of COPD (chronic obstructive pulmonary disease): (2) Bronchitis: ( ) Viral URI: -Patient came in with worsening shortness of breath, cough and STACY -Respiratory viral panel is positive for adenovirus and enterovirus/rhinovirus likely exacerbating COPD - given solumedrol 125 IV in the ER, will continue with 40 mg IV Q12H - pt notes hx of allergy to prednisone po but has tolerated this thus far. -Follow-up admitting blood culture. Admitting CXR w/ no acute findings. -Patient afebrile, reports improving cough, no wheezing. Tapering dose of methylpred from rima. Pt to complete course of azithromycin -Smoking cessation encouraged at bedside - c/w nicotine patch. Pt reports no intention on quitting for now, but will try to cut it down. (3) Paroxysmal A-fib: (4) Anticoagulated on Coumadin: - Afib RVR at time of admission - HR up in the 140s -- improved w/ cardizem drip. - Continue coumadin with daily INRs, currently therapeutic - Continue home regimen of 5 mg daily except on Tuesdays and where she receives 2.5 mg (5) Hypertension: Continue amlodipine, baby aspirin, metoprolol succinate 50 mg every morning (6) Ambulatory dysfunction: History of recurrent hip dislocation, planning surgery in the future DVT PPx:- teds, scds, Coumadin CODE: Full code Dispo: From home, pt/ot cm to assist w/ dc plan. Patient being discharged home with following instruction at the point of discharge: Follow-up with your primary care physician within a week time and likely you will need labs CBC/CMP/magnesium/phosphorus. You will be discharged on tapering dose of methylpred, complete the course. Complete the course of azithromycin as prescribed. Strongly recommend quitting smoking. If you decide to quit smoking, communicate with your PCP office for more help. Continue your medications as prior. Home Health Attestation I certify that this patient is under my care and that I, or a physicians legal administrative assistant working with me, had a face to-face encounter that meets the home health [facility] encounter requirements with this patient. The encounter with the patient was in whole, or in part, for the following medical condition, which is the primary reason for home health care (list medical condition): I certify that, based on my findings, the following services are medically necessary home health services: My clinical findings support the need for the above services because: Further, I certify that my clinical findings support that this patient is homebound (i.e. absences from home require considerable and taxing effort and are for medical reasons or [employer] services or infrequently or of short duration when for other reasons) because: Certification for Home Health Services: Based on the above findings, I certify that this patient is confined to the home and needs intermittent half-way care, physical therapy and/or speech therapy or continues to need occupational therapy. The patient is under my care, and I have initiated the establishment of the plan of care. This patient will be followed by a physician who will periodically review the plan of care. Total Time Total Time Spent Total Time Spent (In Minutes): 45 Discharge Plan Discharge Items Patient Disposition: Home - Self-Care Reason For Visit: ACUTE BRONCHITIS, AFIB RVR Discharge Diagnosis: Exacerbation of COPD Bronchitis Viral URI Paroxysmal A-fib, history of Activity: Resume your previous activity Non-emergency contact: Primary Care Provider Call non-emergency contact if: you have any medication questions and your temperature is above 101 Follow-up/Referrals: Lv Choi MD [Primary Care Provider] - (Date & Time 11/07/2022 11:00 AM Provider Lv Choi MD Department Family [facility] ) Diet: Heart Healthy Addtl Attending Provider Instructions: Follow-up with your primary care physician within a week time and likely you will need labs CBC/CMP/magnesium/phosphorus. You will be discharged on tapering dose of methylpred, complete the course. Complete the course of azithromycin as prescribed. Strongly recommend quitting smoking. If you decide to quit smoking, communicate with your PCP office for more help. Continue your medications as prior. Pending Studies at Discharge: Yes Stand-Alone Forms: My [facility], Smoking Cessation Medications and DC Order Prescriptions: New azithromycin 250 mg Tablet 250 mg PO QAM 3 Days Qty: 3 0RF benzonatate 100 mg Capsule 100 mg PO TID 5 Days Qty: 15 0RF dextromethorphan-guaifenesin 10-100 mg/5 mL Syrup 5 ml PO Q6H PRN (Reason: cough) 7 Days Qty: 237 0RF methylprednisolone [Methylpred DP] 4 mg tablets,dose pack 4 mg PO DAILY Qty: 21 0RF Continued magnesium 250 mg Tablet 250 mg PO DAILY metoprolol succinate 50 mg tablet extended release 24 hr 50 mg PO QAM warfarin 5 mg tablet 5 mg PO QPM Centrum Ultra Women's 18-400 mg-mcg Tablet 1 tab PO QAM trazodone 50 mg tablet 50 mg PO HS amlodipine 2.5 mg tablet 2.5 mg PO QAM hydrochlorothiazide 25 mg tablet 25 mg PO QAM albuterol sulfate 2.5 mg /3 mL (0.083 %) Solution For Nebulization 2.5 mg INHALATION Q4H PRN (Reason: Shortness Of Breath Or Wheezing) albuterol sulfate [ProAir HFA] 90 mcg/actuation Hfa Aerosol Inhaler 2 puff INHALATION 6XD PRN (Reason: Shortness Of Breath Or Wheezing) acetaminophen 650 mg Tablet Extended Release 1,300 mg PO DAILY PRN (Reason: Pain) Probiotic 3 billion cell Capsule 3,000 mmu cells PO QPM Rx Instructions: administer with a meal Discharge Orders: Discharge Order (Routine); Ordered 11/03/22 Ordered By: Le Tolentino Admission Data Admit Date/Time: 11/01/22 14:50 Attending Provider: Le Tolentino Admit Provider: Maria Guadalupe Johnson Primary Care Provider: Lv Choi Other Providers: Maria Guadalupe Johnson
[2022-11-03] MEDS ORDERED: methylPREDNISolone 40 MG in SYRINGE 0 ML IV SCH (20:00)
[2022-11-04] MEDS ORDERED: WARFARIN SOD 2.5 MG TAB PO SCH (16:00)
== END 2022-11-03 16:45 | disposition home or self-care (01) | DRG 191 ==
LOC: ED 12:37 → 2S 14:50 → SUATTDRO 14:50 → 2S 16:53